=== PATIENT | male | born 1970 | race Caucasian/White ===

== ENCOUNTER 2018-07-25 18:32 | Inpatient (IN) | payer OTHER ==
[2018-07-25 18:42] VITALS: BMI 29.0
--- NOTE | 2018-07-25 22:54 | HP ---
CIWA Score Nausea/Vomitin (vomiting x 2) Muscle Tremors: 4-Moderate,w/Arms Extend Anxiety: 3 Agitation: 3 Paroxysmal Sweats: 2 Orientation: 1-Uncertain about Date Tacttile Disturbances: 0-None Auditory Disturbances: 0-None Visual Disturbances: 0-None Headache: 3-Moderate CIWA-Ar Total Score: 19 - Admission Criteria OASAS Guidelines: Admission for Medically Managed Detox: Requires at least one of the followin. CIWA greater than 12 2. Seizures within the past 24 hours 3. Delirium tremens within the past 24 hours 4. Hallucinations within the past 24 hours 5. Acute intervention needed for co occurring medical disorder 6. Acute intervention needed for co occurring psychiatric disorder 7. Severe withdrawal that cannot be handled at a lower level of care (continued vomiting, continued diarrhea, abnormal vital signs) requiring intravenous medication and/or fluids 8. Admission ROS [facility] Chief Complaint: Alcohol withdrawal symptoms Allergies/Adverse Reactions: Allergies Allergy/AdvReac Type Severity Reaction Status Date / Time No Known Allergies Allergy Verified 07/25/18 22:56 History of Present Illness: 47o years old male with a long history of alcohol dependence is seeking admission to detox. Patient has been in previous and reports insignificant period of sobriety. He has medical history of Hep. C, hypertension, asthma, anxiety and right leg pain He denies suicide attempt and suicidal ideation at this time. This is patient's first admission to [facility] and he reports blackouts from drinking. He is on Methadone 150mg tablet oral at [facility]. Dose is yet to be confirmed by the nurse Exam Limitations: No Limitations - Ebola screening Have you traveled outside of the country in the last 21 days: No (N) Have you had contact with anyone from an Ebola affected area: No Have you been sick,other than usual withdrawal symptoms: No Do you have a fever: No - Review of Systems Constitutional: Chills, Loss of Appetite, Malaise, Changes in sleep EENT: reports: Sinus Pressure Respiratory: reports: No Symptoms reported Cardiac: reports: No Symptoms Reported GI: reports: Diarrhea (x 2), Nausea, Poor Appetite, Poor Fluid Intake, Vomiting (x 2), Abdominal cramping : reports: No Symptoms Reported Musculoskeletal: reports: Back Pain, Other (right leg pain) Integumentary: reports: Dryness, Flushing Neuro: reports: Headache, Tremors Endocrine: reports: No Symptoms Reported Hematology: reports: No Symptoms Reported Psychiatric: reports: Anxious, Depressed Other Systems: Reviewed and Negative Patient History - Patient Medical History Hx Anemia: No Hx Asthma: Yes (Ventolin HFA) Hx Chronic Obstructive Pulmonary Disease (COPD): No Hx Cancer: No Hx Cardiac Disorders: No Hx Congestive Heart Failure: No Hx Hypertension: Yes (Clonidine) Hx Hypercholesterolemia: No Hx Pacemaker: No HX Cerebrovascular Accident: No Hx Seizures: No Hx Dementia: No Hx Diabetes: No Hx Liver Disease: Yes (Hep C.) Hx Genitourinary Disorders: No Hx Sexually Transmitted Disorders: No Hx Renal Disease (ESRD): No Hx Thyroid Disease: No Hx Human Immunodeficiency Virus (HIV): No (Negative 2018) Hx Hepatitis C: Yes (Not treated) Hx Depression: No Hx Suicide Attempt: No (Denies suicidal ideation at this time) Hx Bipolar Disorder: No Hx Schizophrenia: No - Patient Surgical History Past Surgical History: No - PPD History Previous Implant?: Yes Documented Results: Negative w/o proof Implanted On Prior R Admission?: No PPD to be Administered?: Yes - Reproductive History Patient is a Female of Child Bearing Age (11 -55 yrs old): No (Male) - Smoking Cessation Smoking history: Current every day smoker Have you smoked in the past 12 months: Yes Aproximately how many cigarettes per day: 10 Hx Chewing Tobacco Use: No Initiated information on smoking cessation: Yes 'Breaking Loose' booklet given: 07/25/18 - Substances Abused Alcohol Route: Oral Frequency: Daily Amount used: BEER -10 x 16oz. cans, RUM -4 x 8 oz. Age of first use: 16 Date of Last Use: 07/25/18 Family Disease History - Family Disease History Family History: Denies Admission Physical Exam S - Vital Signs Vital Signs: Vital Signs - 24 hr 07/25/18 18:39 Temperature 98.7 F Pulse Rate 81 Respiratory 18 Rate Blood Pressure 128/68 - Physical General Appearance: Yes: Moderate Distress, Tremorous, Sweating, Anxious HEENTM: Yes: EOMI, Normal ENT Inspection, Normal Voice, COURTNEY Respiratory: Yes: Normal Breath Sounds, No Respiratory Distress Neck: Yes: Supple Breast: Yes: Breast Exam Deferred Cardiology: Yes: Regular Rhythm, Regular Rate Abdominal: Yes: Normal Bowel Sounds, Soft Genitourinary: Yes: Within Normal Limits Back: Yes: Normal Inspection Musculoskeletal: Yes: Within Normal Limits Extremities: Yes: Tremors Integumentary: Yes: Warm Lymphatic: Yes: Within Normal Limits - Diagnostic (1) Alcohol dependence with uncomplicated withdrawal Current Visit: Yes Status: Chronic (2) Hep C w/o coma, chronic Current Visit: Yes Status: Chronic (3) Hypertension Current Visit: Yes Status: Chronic Qualifiers: Hypertension type: essential hypertension Qualified Code(s): I10 - Essential (primary) hypertension (4) Asthma Current Visit: Yes Status: Chronic Qualifiers: Asthma severity: mild Asthma persistence: intermittent (5) Left leg pain Current Visit: Yes Status: Chronic (6) Anxiety Current Visit: Yes Status: Chronic (7) Nicotine dependence Current Visit: Yes Status: Chronic Qualifiers: Nicotine product type: cigarettes Substance use status: uncomplicated Qualified Code(s): F17.210 - Nicotine dependence, cigarettes, uncomplicated Cleared for Admission S - Detox or Rehab [facility] Level of Care: Medically Managed Detox Regimen/Protocol: Librium S Breath Alcohol Content Breath Alcohol Content: 0.030 Urine Drug Screen - Results Drug Screen Negative: No Urine Drug Screen Results: ARIC-Cocaine, MTD-Methadone Inpatient Rehab Admission - Rehab Decision to Admit Inpatient rehab admission?: No
[2018-07-25] MEDS ORDERED: MAGNESIUM HYDROX 2400MG/30ML ORAL SUSPENSION 30 ML CUP PO PRN (23:18)
[2018-07-25] MEDS ORDERED: MENTHOL/PHENOL 1 EACH UD MM PRN (23:18)
[2018-07-25] MEDS ORDERED: MAG HYDROX/AL HYDROX/SIMETH 30 ML UNIT-DOSE CUP PO PRN (23:18)
[2018-07-25] MEDS ORDERED: chlordiazePOXIDE HCL 25 MG CAPSULE PO PRN (23:18)
[2018-07-25] MEDS ORDERED: BISMUTH SUBSALICYLATE 524 MG/30 ML UD PO PRN (23:18)
[2018-07-25] MEDS ORDERED: MAGNESIUM CITRATE 300 ML BOTTLE PO PRN (23:18)
[2018-07-25] MEDS ORDERED: MELATONIN 5 MG TABLETS PO PRN (23:18)
[2018-07-25] MEDS ORDERED: NICOTINE POLACRILEX 2 MG GUM BUC PRN (23:18)
[2018-07-25] MEDS ORDERED: ACETAMINOPHEN 325 MG TABLET (FP) PO PRN ×2 (23:18)
[2018-07-26] MEDS: chlordiazePOXIDE HCL 25 MG CAPSULE PO SCH ×5 (01:14→22:26)
[2018-07-26] MEDS: IBUPROFEN 400 MG TABLET (FP) PO PRN (01:17)
[2018-07-26] MEDS ORDERED: METHADONE HCL 10 MG TABLET PO ONE (10:04)
[2018-07-26] MEDS ORDERED: METHADONE 120 MG, METHADONE 30 MG PO ONE (10:30)
[2018-07-26] MEDS ORDERED: METHADONE HCL 10 MG TABLET ONE (10:34)
[2018-07-26] MEDS ORDERED: METHADONE HCL 40 MG DISPERSABLE TABLET ONE (10:34)
[2018-07-26] MEDS: NICOTINE 14 MG/24 HOURS TOPICAL PATCH TD SCH (10:37)
[2018-07-26] MEDS: PRENATAL VITAMINS W/ FOLIC ACID TABLET (FP) PO SCH (10:37)
--- NOTE | 2018-07-26 11:41 | PN ---
S CIWA - CIWA Score Nausea/Vomitin Muscle Tremors: 2 Anxiety: 2 Agitation: 2 Paroxysmal Sweats: 2 Orientation: 0-Oriented Tacttile Disturbances: 1-Very Mild Itch/Numbness Auditory Disturbances: 1-Very Mild Visual Disturbances: 0-None Headache: 2-Mild CIWA-Ar Total Score: 14 [facility] Progress Note (SOAP) Subjective: alert,irritable,anxious,interrupted sleep,pain in the body and back Objective: 07/26/18 11:39 Vital Signs Temperature 98.2 F 07/26/18 09:21 Pulse Rate 67 07/26/18 09:21 Respiratory Rate 18 07/26/18 09:21 Blood Pressure 164/83 07/26/18 09:21 O2 Sat by Pulse Oximetry (%) ekg nsr,lvh no chest pain,no sob,no dizziness labs pending Assessment: 07/26/18 11:40 withdrawal symptom Plan: continue detox
[2018-07-26 12:17] LABS: HEMATOCRIT 39.4 % (35.4-49); HEMOGLOBIN 13.4 GM/dL (11.7-16.9); MCH 31.5 pg (25.7-33.7); MCHC 33.9 g/dl (32.0-35.9); MEAN CELL VOLUME 92.9 fl (80-96); MEAN PLT VOLUME 9.2 fl (7.5-11.1); PLATELET COUNT 210 K/MM3 (134-434); RBC 4.24 M/mm3 (4.00-5.60); RDW 13.4 % (11.9-15.9)
[2018-07-26 12:34] LABS: ALBUMIN 3.3 g/dl (3.4-5.0); ALK PHOS 125 U/L (45-117); ANION GAP 8 MMOL/L (8-16); BILIRUBIN,TOTAL 0.4 mg/dL (0.2-1); BLOOD UREA NITROGEN 20 mg/dL (7-18); CALCIUM 8.5 mg/dL (8.5-10.1); CHLORIDE 105 mmol/L (98-107); CO2 25 mmol/L (21-32); CREATININE 0.9 mg/dL (0.55-1.3); GLUCOSE,RANDOM 97 mg/dL (74-106); SGOT/AST 86 U/L (15-37); SGPT/ALT 114 U/L (13-61); SODIUM 138 mmol/L (136-145); TOT PROT 6.8 g/dl (6.4-8.2)
[2018-07-26] MEDS: METHOCARBAMOL 500 MG TABLET PO PRN (13:31)
[2018-07-26] MEDS: hydrOXYzine PAMOATE 25 MG CAPSULE (FP) PO PRN (13:31)
--- NOTE | 2018-07-26 21:46 | EKG ---
Test Reason : Blood Pressure : / mmHG Vent. Rate : 071 BPM Atrial Rate : 071 BPM P-R Int : 170 ms QRS Dur : 098 ms QT Int : 424 ms P-R-T Axes : 063 082 031 degrees QTc Int : 460 ms NORMAL SINUS RHYTHM MODERATE VOLTAGE CRITERIA FOR LVH, MAY BE NORMAL VARIANT BORDERLINE ECG NO PREVIOUS ECGS AVAILABLE Confirmed by MD CÉSAR, BENJY ([id number]) on 07/26/2018 9:46:18 PM Referred By: TIMMY BROOKS Confirmed By:BENJY LINDSEY MD
[2018-07-26] MEDS: BACITRACIN 0.9 GM PACKET TP SCH (22:26)
[2018-07-26] MEDS: THIAMINE HCL 100 MG TABLET (FP) PO SCH (22:26)
[2018-07-27] MEDS ORDERED: METHADONE HCL 40 MG DISPERSABLE TABLET ONE (05:12)
[2018-07-27] MEDS ORDERED: METHADONE HCL 10 MG TABLET ONE (05:12)
[2018-07-27] MEDS ORDERED: METHADONE HCL 10 MG TABLET PO SCH (06:00)
[2018-07-27] MEDS: METHADONE 120 MG, METHADONE 30 MG PO SCH (06:35)
[2018-07-27] MEDS: chlordiazePOXIDE HCL 25 MG CAPSULE PO SCH ×3 (06:35→17:22)
[2018-07-27] MEDS: IBUPROFEN 400 MG TABLET (FP) PO PRN ×2 (08:29→17:25)
[2018-07-27] MEDS ORDERED: BACLOFEN 10 MG TABLET (FP) PO ONE (09:53)
[2018-07-27] MEDS ORDERED: ONDANSETRON *ODT* 4 MG TABLET SL PRN (09:54)
[2018-07-27] MEDS: LIDOCAINE 5% TOPICAL PATCH TP SCH (10:10)
[2018-07-27] MEDS: BACITRACIN 0.9 GM PACKET TP SCH ×2 (10:10→22:19)
--- NOTE | 2018-07-27 10:10 | PN ---
S CIWA - CIWA Score Nausea/Vomitin-Mild Nausea/No Vomiting Muscle Tremors: 4-Moderate,w/Arms Extend Anxiety: 3 Agitation: 3 Paroxysmal Sweats: 3 Orientation: 0-Oriented Tacttile Disturbances: 0-None Auditory Disturbances: 0-None Visual Disturbances: 0-None Headache: 0-None Present CIWA-Ar Total Score: 14 [facility]HS Progress Note (SOAP) Subjective: sweats low back pain radiating down to right leg shakes interrupted sleep nausea muscle aches/spasms Objective: 07/27/18 10:09 Vital Signs Temperature 98.1 F 07/27/18 09:48 Pulse Rate 80 07/27/18 09:48 Respiratory Rate 18 07/27/18 09:48 Blood Pressure 152/85 07/27/18 09:48 O2 Sat by Pulse Oximetry (%) Laboratory Tests 07/26/18 07/26/18 07/26/18 07:30 07:30 07:30 WBC 4.0 RBC 4.24 Hgb 13.4 Hct 39.4 MCV 92.9 MCH 31.5 MCHC 33.9 RDW 13.4 Plt Count 210 MPV 9.2 Sodium 138 Potassium 4.0 Chloride 105 Carbon Dioxide 25 Anion Gap 8 BUN 20 H Creatinine 0.9 Creat Clearance w eGFR 89.69 Random Glucose 97 Calcium 8.5 Total Bilirubin 0.4 AST 86 H ALT 114 H Alkaline Phosphatase 125 H Total Protein 6.8 Albumin 3.3 L RPR Titer Nonreactive labs noted elevated ast/alt; d/c tylenol aaox3 ambulating no acute distress Assessment: 07/27/18 10:09 withdrawal sx Plan: continue detox increase fluids x-ray ordered motrin 800mg tid prn lidoderm patch baclofen 10mg tid analgesic balm
[2018-07-27] MEDS: NICOTINE 14 MG/24 HOURS TOPICAL PATCH TD SCH (10:11)
[2018-07-27] MEDS: PRENATAL VITAMINS W/ FOLIC ACID TABLET (FP) PO SCH (10:11)
[2018-07-27] MEDS: BACLOFEN 10 MG TABLET (FP) PO SCH ×2 (13:23→22:18)
[2018-07-27] MEDS: THIAMINE HCL 100 MG TABLET (FP) PO SCH (22:18)
[2018-07-27] MEDS: LIDOCAINE PATCH REMOVAL MC SCH (22:19)
[2018-07-27] MEDS: chlordiazePOXIDE HCL 10 MG CAPSULE PO SCH (22:19)
[2018-07-27] MEDS: METHYL SALICYLATE/MENTHOL OINT 30 GM TUBE TP SCH (22:19)
[2018-07-27] MEDS ORDERED: chlordiazePOXIDE HCL 10 MG CAPSULE PO PRN (23:00)
[2018-07-28] MEDS ORDERED: METHADONE HCL 10 MG TABLET ONE (05:09)
[2018-07-28] MEDS ORDERED: METHADONE HCL 40 MG DISPERSABLE TABLET ONE (05:09)
[2018-07-28] MEDS: chlordiazePOXIDE HCL 10 MG CAPSULE PO SCH ×4 (05:54→22:33)
[2018-07-28] MEDS: BACLOFEN 10 MG TABLET (FP) PO SCH ×3 (05:54→22:32)
[2018-07-28] MEDS: METHADONE 120 MG, METHADONE 30 MG PO SCH (05:54)
[2018-07-28] MEDS: IBUPROFEN 400 MG TABLET (FP) PO PRN ×2 (10:33→18:50)
[2018-07-28] MEDS: hydrOXYzine PAMOATE 25 MG CAPSULE (FP) PO PRN ×2 (10:34→22:32)
[2018-07-28] MEDS: METHOCARBAMOL 500 MG TABLET PO PRN (10:34)
[2018-07-28] MEDS: PRENATAL VITAMINS W/ FOLIC ACID TABLET (FP) PO SCH (10:34)
[2018-07-28] MEDS: NICOTINE 14 MG/24 HOURS TOPICAL PATCH TD SCH (10:37)
--- NOTE | 2018-07-28 11:24 | PN ---
S Progress Note (SOAP) Subjective: alert,irritable,anxious,interrupted sleep,pain in the right hip Objective: 07/28/18 11:20 Vital Signs Temperature 97.2 F L 07/28/18 09:27 Pulse Rate 77 07/28/18 09:27 Respiratory Rate 18 07/28/18 09:27 Blood Pressure 148/82 07/28/18 09:27 O2 Sat by Pulse Oximetry (%) 07/28/18 11:21 xray of hips,pelvis noted,arthritis Assessment: 07/28/18 11:22 withdrawal symptom Plan: continue detox,discharge in am,advise follow up with medical provider and orthpedic evaluation after discharge in am
[2018-07-28] MEDS: LIDOCAINE 5% TOPICAL PATCH TP SCH (11:46)
[2018-07-28] MEDS: BACITRACIN 0.9 GM PACKET TP SCH ×2 (11:47→22:32)
[2018-07-28] MEDS: METHYL SALICYLATE/MENTHOL OINT 30 GM TUBE TP SCH ×2 (11:47→23:44)
[2018-07-28] MEDS ORDERED: ALBUTEROL SO4 0.083% IH SOL 2.5 MG/3 ML VIAL.NEB. NEB PRN (18:55)
[2018-07-28] MEDS: THIAMINE HCL 100 MG TABLET (FP) PO SCH (22:33)
[2018-07-28] MEDS: LIDOCAINE PATCH REMOVAL MC SCH (23:44)
[2018-07-29] MEDS ORDERED: METHADONE HCL 40 MG DISPERSABLE TABLET ONE (04:23)
[2018-07-29] MEDS ORDERED: METHADONE HCL 10 MG TABLET ONE (04:24)
[2018-07-29] MEDS: METHADONE 120 MG, METHADONE 30 MG PO SCH (05:29)
[2018-07-29] MEDS: BACLOFEN 10 MG TABLET (FP) PO SCH ×2 (05:30→13:54)
[2018-07-29] MEDS: IBUPROFEN 400 MG TABLET (FP) PO PRN (08:58)
--- NOTE | 2018-07-29 09:02 | DS ---
[facility] Detox Discharge Summary Admission Date: 07/25/18 Discharge Date: 07/29/18 - History Present History: Alcohol Dependence - Physical Exam Results Vital Signs: Vital Signs Temperature 97.9 F 07/29/18 06:00 Pulse Rate 80 07/29/18 06:00 Respiratory Rate 18 07/29/18 06:00 Blood Pressure 128/78 07/29/18 06:00 O2 Sat by Pulse Oximetry (%) - Treatment Hospital Course: Detox Protocol Followed, Detoxed Safely, Responded well, Discharged Condition Good, Rehab Referral Accepted - Medication Discharge Medications: Ambulatory Orders NK [No Known Home Medication] 07/28/18 - Diagnosis (1) Alcohol dependence with uncomplicated withdrawal Current Visit: Yes Status: Chronic (2) Anxiety Current Visit: Yes Status: Chronic (3) Asthma Current Visit: Yes Status: Chronic Qualifiers: Asthma severity: mild Asthma persistence: intermittent (4) Hep C w/o coma, chronic Current Visit: Yes Status: Chronic (5) Hypertension Current Visit: Yes Status: Chronic Qualifiers: Hypertension type: essential hypertension Qualified Code(s): I10 - Essential (primary) hypertension (6) Left leg pain Current Visit: Yes Status: Chronic (7) Nicotine dependence Current Visit: Yes Status: Chronic Qualifiers: Nicotine product type: cigarettes Substance use status: uncomplicated Qualified Code(s): F17.210 - Nicotine dependence, cigarettes, uncomplicated - AMA Did Patient Leave Against Medical Advice: No (pt declined rehab; referred to see his PCP if necessary)
--- NOTE | 2018-07-29 09:05 | PN ---
S Progress Note Note: pt had a leg x-ray done; report reads degenerative changes but if pain persist he is to go see an orthopedic MD. Pt was made aware and copy of result was provided.
[2018-07-29 09:55] VITALS: BP 120/79; PULSE 85; TEMP 97
[2018-07-29] MEDS: PRENATAL VITAMINS W/ FOLIC ACID TABLET (FP) PO SCH (10:13)
[2018-07-29] MEDS: LIDOCAINE 5% TOPICAL PATCH TP SCH (10:13)
[2018-07-29] MEDS: NICOTINE 14 MG/24 HOURS TOPICAL PATCH TD SCH (10:13)
[2018-07-29] MEDS: BACITRACIN 0.9 GM PACKET TP SCH (10:14)
[2018-07-29] MEDS: METHYL SALICYLATE/MENTHOL OINT 30 GM TUBE TP SCH (10:14)
[2018-07-29] MEDS: chlordiazePOXIDE HCL 10 MG CAPSULE PO SCH (12:45)
== END 2018-07-29 14:00 | disposition other institution (70) | DRG 775 ==
LOC: YASAS 18:32 → Y6N 23:42
PROVIDERS: ADMIT Surgery; ATTEND Surgery
PROC: HZ2ZZZZ Detoxification Services for Substance Abuse Treatment (ICD-10-PCS; principal; 2018-07-25)
DX: F10.230 Alcohol dependence with withdrawal, uncomplicated (principal); F17.210 Nicotine dependence, cigarettes, uncomplicated; F41.9 Anxiety disorder, unspecified; I10 Essential (primary) hypertension; B18.2 Chronic viral hepatitis C; J45.20 Mild intermittent asthma, uncomplicated; M79.605 Pain in left leg
CPT/HCPCS: 36415; 73523-TC-FY; 80053; 85027; 86593; 93005; 93010; J0475

== ENCOUNTER 2018-07-29 14:10 | Inpatient (IN) | payer OTHER ==
[2018-07-29] MEDS ORDERED: P-EPHED 60MG/TRIPROLIDI 2.5MG TABLET PO PRN (14:35)
[2018-07-29] MEDS ORDERED: MAGNESIUM CITRATE 300 ML BOTTLE PO PRN (14:35)
[2018-07-29] MEDS ORDERED: MENTHOL/PHENOL 1 EACH UD MM PRN (14:35)
[2018-07-29] MEDS ORDERED: guaiFENesin 200 MG/10 ML 10 ML UNIT-DOSE CUPS PO PRN (14:35)
[2018-07-29] MEDS ORDERED: MAGNESIUM HYDROX 2400MG/30ML ORAL SUSPENSION 30 ML CUP PO PRN (14:35)
[2018-07-29] MEDS ORDERED: ACETAMINOPHEN 325 MG TABLET (FP) PO PRN (14:35)
[2018-07-29] MEDS ORDERED: hydrOXYzine PAMOATE 25 MG CAPSULE (FP) PO PRN (14:35)
[2018-07-29] MEDS ORDERED: LOPERAMIDE HCL 2 MG CAPSULE PO PRN (14:35)
--- NOTE | 2018-07-29 14:35 | HP ---
ANDREEA MAGDALENO Rehab Assess/Revision - Admission History Admitted to Rehab from: [facility] Date of Admission to Rehab: 07/29/18 - Findings Detox History & Physical reviewed: Yes Concur with findings: Yes Comments/Additional Findings: for rehab as protocol Inpatient Rehab Admission - Rehab Decision to Admit Inpatient rehab admission?: Yes - Initial Determination Are CD services needed?: Yes Free of communicable disease: Yes Not in need of hospitalization: Yes - Rehab Admission Criteria Previous failed treatment: Yes Poor recovery environment: Yes Comorbidities: Yes Lacks judgement: No Patient is meeting Inpatient Rehab admission criteria:: Yes
[2018-07-29] MEDS ORDERED: ALBUTEROL SO4 8 GM HFA INHALER IH PRN (14:39)
[2018-07-29] MEDS: IBUPROFEN 400 MG TABLET (FP) PO PRN (14:54)
[2018-07-29] MEDS: THIAMINE HCL 100 MG TABLET (FP) PO SCH (21:04)
[2018-07-29] MEDS: CYCLOBENZAPRINE HCL 10 MG TABLET (FP) PO SCH (21:04)
[2018-07-29] MEDS: MELATONIN 5 MG TABLETS PO PRN (21:04)
[2018-07-29] MEDS: METHYL SALICYLATE/MENTHOL OINT 30 GM TUBE TP SCH (21:05)
[2018-07-29] MEDS: BUDESONIDE/FORMETEROL FUMARATE 160/4.5 mcg INHALER IH SCH (21:06)
[2018-07-29] MEDS: LIDOCAINE PATCH REMOVAL MC SCH (21:10)
[2018-07-30] MEDS ORDERED: METHADONE HCL 10 MG TABLET PO SCH (06:00)
[2018-07-30] MEDS ORDERED: METHADONE HCL 40 MG DISPERSABLE TABLET ONE (06:25)
[2018-07-30] MEDS: CYCLOBENZAPRINE HCL 10 MG TABLET (FP) PO SCH ×3 (06:25→21:18)
[2018-07-30] MEDS: METHADONE 120 MG, METHADONE 30 MG PO SCH (06:25)
[2018-07-30] MEDS ORDERED: METHADONE HCL 10 MG TABLET ONE (06:25)
[2018-07-30] MEDS: LIDOCAINE 5% TOPICAL PATCH TP SCH (09:04)
[2018-07-30] MEDS: PRENATAL VITAMINS W/ FOLIC ACID TABLET (FP) PO SCH (09:04)
[2018-07-30] MEDS: METHYL SALICYLATE/MENTHOL OINT 30 GM TUBE TP SCH ×2 (09:05→21:17)
[2018-07-30] MEDS: BUDESONIDE/FORMETEROL FUMARATE 160/4.5 mcg INHALER IH SCH ×2 (09:05→21:18)
[2018-07-30] MEDS: IBUPROFEN 400 MG TABLET (FP) PO PRN (09:05)
[2018-07-30] MEDS: MAG HYDROX/AL HYDROX/SIMETH 30 ML UNIT-DOSE CUP PO PRN (13:35)
[2018-07-30] MEDS: LIDOCAINE PATCH REMOVAL MC SCH (21:17)
[2018-07-30] MEDS: THIAMINE HCL 100 MG TABLET (FP) PO SCH (21:18)
[2018-07-31] MEDS ORDERED: METHADONE HCL 40 MG DISPERSABLE TABLET ONE (03:30)
[2018-07-31] MEDS ORDERED: METHADONE HCL 10 MG TABLET ONE (03:30)
[2018-07-31] MEDS: CYCLOBENZAPRINE HCL 10 MG TABLET (FP) PO SCH ×3 (06:09→21:07)
[2018-07-31] MEDS: METHADONE 120 MG, METHADONE 30 MG PO SCH (06:10)
[2018-07-31] MEDS: PRENATAL VITAMINS W/ FOLIC ACID TABLET (FP) PO SCH (09:15)
[2018-07-31] MEDS: IBUPROFEN 400 MG TABLET (FP) PO PRN ×2 (09:15→21:09)
[2018-07-31] MEDS: LIDOCAINE 5% TOPICAL PATCH TP SCH (09:15)
[2018-07-31] MEDS: BUDESONIDE/FORMETEROL FUMARATE 160/4.5 mcg INHALER IH SCH ×2 (09:16→21:07)
[2018-07-31] MEDS: METHYL SALICYLATE/MENTHOL OINT 30 GM TUBE TP SCH ×2 (09:16→21:07)
[2018-07-31] MEDS: THIAMINE HCL 100 MG TABLET (FP) PO SCH (21:07)
[2018-07-31] MEDS: LIDOCAINE PATCH REMOVAL MC SCH (21:07)
[2018-07-31] MEDS: MELATONIN 5 MG TABLETS PO PRN (21:08)
[2018-08-01] MEDS ORDERED: METHADONE HCL 10 MG TABLET ONE (04:07)
[2018-08-01] MEDS ORDERED: METHADONE HCL 40 MG DISPERSABLE TABLET ONE (04:07)
[2018-08-01] MEDS: METHADONE 120 MG, METHADONE 30 MG PO SCH (06:15)
[2018-08-01] MEDS: CYCLOBENZAPRINE HCL 10 MG TABLET (FP) PO SCH ×3 (06:15→21:01)
[2018-08-01] MEDS: IBUPROFEN 400 MG TABLET (FP) PO PRN ×2 (08:44→21:03)
[2018-08-01] MEDS: PRENATAL VITAMINS W/ FOLIC ACID TABLET (FP) PO SCH (09:49)
[2018-08-01] MEDS: BUDESONIDE/FORMETEROL FUMARATE 160/4.5 mcg INHALER IH SCH ×2 (09:50→21:01)
[2018-08-01] MEDS: LIDOCAINE 5% TOPICAL PATCH TP SCH (09:50)
[2018-08-01] MEDS: METHYL SALICYLATE/MENTHOL OINT 30 GM TUBE TP SCH ×2 (09:51→21:04)
[2018-08-01] MEDS: NICOTINE 21 MG/24 HOURS TOPICAL PATCH TD SCH (14:05)
--- NOTE | 2018-08-01 16:10 | PN ---
[facility] Progress Note Note: C/O BACK PAIN NOT EFFECTIVE WITH IBUPROFEN. WANTS LIDOCAINE PATCH. Vital Signs (72 hours) 07/30/18 07/30/18 07/30/18 00:30 03:30 06:40 Temperature 97.8 F Pulse Rate 79 Respiratory 18 18 18 Rate Blood Pressure 134/83 07/31/18 07/31/18 07/31/18 00:30 03:30 06:30 Temperature 98.1 F Pulse Rate 77 Respiratory 18 18 16 Rate Blood Pressure 145/85 08/01/18 08/01/18 08/01/18 00:30 03:30 06:47 Temperature 98.1 F Pulse Rate 72 Respiratory 18 18 18 Rate Blood Pressure 146/83 08/01/18 10:00 Temperature Pulse Rate 81 Respiratory 18 Rate Blood Pressure 128/84 A:CHRONIC BACK PAIN PLAN:LIDOCAINE PATCH DIRECTED
[2018-08-01] MEDS: THIAMINE HCL 100 MG TABLET (FP) PO SCH (21:01)
[2018-08-01] MEDS: MELATONIN 5 MG TABLETS PO PRN (21:02)
[2018-08-01] MEDS: LIDOCAINE PATCH REMOVAL MC SCH (21:05)
[2018-08-02] MEDS ORDERED: METHADONE HCL 40 MG DISPERSABLE TABLET ONE (03:10)
[2018-08-02] MEDS ORDERED: METHADONE HCL 10 MG TABLET ONE (03:10)
[2018-08-02] MEDS: CYCLOBENZAPRINE HCL 10 MG TABLET (FP) PO SCH ×3 (06:09→21:17)
[2018-08-02] MEDS: METHADONE 120 MG, METHADONE 30 MG PO SCH (06:10)
[2018-08-02] MEDS: IBUPROFEN 400 MG TABLET (FP) PO PRN ×2 (08:27→21:18)
[2018-08-02] MEDS: LIDOCAINE 5% TOPICAL PATCH TP SCH (10:13)
[2018-08-02] MEDS: BUDESONIDE/FORMETEROL FUMARATE 160/4.5 mcg INHALER IH SCH ×2 (10:13→21:16)
[2018-08-02] MEDS: PRENATAL VITAMINS W/ FOLIC ACID TABLET (FP) PO SCH (10:13)
[2018-08-02] MEDS: METHYL SALICYLATE/MENTHOL OINT 30 GM TUBE TP SCH ×2 (10:14→21:15)
[2018-08-02] MEDS: NICOTINE 21 MG/24 HOURS TOPICAL PATCH TD SCH (10:14)
[2018-08-02] MEDS: MELATONIN 5 MG TABLETS PO PRN (21:16)
[2018-08-02] MEDS: THIAMINE HCL 100 MG TABLET (FP) PO SCH (21:17)
[2018-08-02] MEDS: LIDOCAINE PATCH REMOVAL MC SCH (21:17)
[2018-08-03] MEDS ORDERED: METHADONE HCL 40 MG DISPERSABLE TABLET ONE (04:16)
[2018-08-03] MEDS ORDERED: METHADONE HCL 10 MG TABLET ONE (04:16)
[2018-08-03] MEDS: CYCLOBENZAPRINE HCL 10 MG TABLET (FP) PO SCH ×3 (06:25→21:02)
[2018-08-03] MEDS: METHADONE 120 MG, METHADONE 30 MG PO SCH (06:25)
[2018-08-03] MEDS: IBUPROFEN 400 MG TABLET (FP) PO PRN (08:42)
[2018-08-03] MEDS: BUDESONIDE/FORMETEROL FUMARATE 160/4.5 mcg INHALER IH SCH ×2 (09:57→21:02)
[2018-08-03] MEDS: PRENATAL VITAMINS W/ FOLIC ACID TABLET (FP) PO SCH (09:57)
[2018-08-03] MEDS: METHYL SALICYLATE/MENTHOL OINT 30 GM TUBE TP SCH ×2 (09:58→21:04)
[2018-08-03] MEDS: NICOTINE 21 MG/24 HOURS TOPICAL PATCH TD SCH (09:58)
[2018-08-03] MEDS: LIDOCAINE 5% TOPICAL PATCH TP SCH (09:58)
[2018-08-03] MEDS: MAG HYDROX/AL HYDROX/SIMETH 30 ML UNIT-DOSE CUP PO PRN (12:08)
[2018-08-03] MEDS: THIAMINE HCL 100 MG TABLET (FP) PO SCH (21:02)
[2018-08-03] MEDS: LIDOCAINE PATCH REMOVAL MC SCH (21:03)
[2018-08-03] MEDS: MELATONIN 5 MG TABLETS PO PRN (21:03)
[2018-08-04] MEDS ORDERED: METHADONE HCL 10 MG TABLET ONE (03:28)
[2018-08-04] MEDS ORDERED: METHADONE HCL 40 MG DISPERSABLE TABLET ONE (03:29)
[2018-08-04] MEDS: METHADONE 120 MG, METHADONE 30 MG PO SCH (06:13)
[2018-08-04] MEDS: CYCLOBENZAPRINE HCL 10 MG TABLET (FP) PO SCH ×3 (06:14→21:06)
[2018-08-04] MEDS: PRENATAL VITAMINS W/ FOLIC ACID TABLET (FP) PO SCH (09:42)
[2018-08-04] MEDS: METHYL SALICYLATE/MENTHOL OINT 30 GM TUBE TP SCH ×2 (09:42→21:07)
[2018-08-04] MEDS: BUDESONIDE/FORMETEROL FUMARATE 160/4.5 mcg INHALER IH SCH ×2 (09:43→21:07)
[2018-08-04] MEDS: NICOTINE 21 MG/24 HOURS TOPICAL PATCH TD SCH (10:19)
[2018-08-04] MEDS: LIDOCAINE 5% TOPICAL PATCH TP SCH (10:20)
[2018-08-04] MEDS: IBUPROFEN 400 MG TABLET (FP) PO PRN (12:53)
[2018-08-04] MEDS: MAG HYDROX/ALH/SMC/DPHA/LIDO 240 ML MOUTHWASH MM SCH ×2 (15:07→17:55)
[2018-08-04] MEDS: THIAMINE HCL 100 MG TABLET (FP) PO SCH (21:06)
[2018-08-04] MEDS: MELATONIN 5 MG TABLETS PO PRN (21:06)
[2018-08-04] MEDS: LIDOCAINE PATCH REMOVAL MC SCH (21:07)
[2018-08-05] MEDS: MAG HYDROX/ALH/SMC/DPHA/LIDO 240 ML MOUTHWASH MM SCH ×5 (00:04→23:54)
[2018-08-05] MEDS ORDERED: METHADONE HCL 10 MG TABLET ONE (05:51)
[2018-08-05] MEDS ORDERED: METHADONE HCL 40 MG DISPERSABLE TABLET ONE (05:51)
[2018-08-05] MEDS: CYCLOBENZAPRINE HCL 10 MG TABLET (FP) PO SCH ×3 (06:15→21:14)
[2018-08-05] MEDS: METHADONE 120 MG, METHADONE 30 MG PO SCH (06:15)
[2018-08-05] MEDS: IBUPROFEN 400 MG TABLET (FP) PO PRN ×2 (08:49→14:24)
[2018-08-05] MEDS: PRENATAL VITAMINS W/ FOLIC ACID TABLET (FP) PO SCH (09:41)
[2018-08-05] MEDS: LIDOCAINE 5% TOPICAL PATCH TP SCH (09:41)
[2018-08-05] MEDS: METHYL SALICYLATE/MENTHOL OINT 30 GM TUBE TP SCH ×2 (09:41→21:15)
[2018-08-05] MEDS: BUDESONIDE/FORMETEROL FUMARATE 160/4.5 mcg INHALER IH SCH ×2 (09:42→21:18)
[2018-08-05] MEDS: NICOTINE 21 MG/24 HOURS TOPICAL PATCH TD SCH (09:42)
[2018-08-05] MEDS: THIAMINE HCL 100 MG TABLET (FP) PO SCH (21:13)
[2018-08-05] MEDS: MELATONIN 5 MG TABLETS PO PRN (21:14)
[2018-08-05] MEDS: LIDOCAINE PATCH REMOVAL MC SCH (21:15)
[2018-08-06] MEDS ORDERED: METHADONE HCL 10 MG TABLET ONE (04:28)
[2018-08-06] MEDS ORDERED: METHADONE HCL 40 MG DISPERSABLE TABLET ONE (04:29)
[2018-08-06] MEDS: CYCLOBENZAPRINE HCL 10 MG TABLET (FP) PO SCH ×3 (06:21→21:06)
[2018-08-06] MEDS: METHADONE 120 MG, METHADONE 30 MG PO SCH (06:22)
[2018-08-06] MEDS: MAG HYDROX/ALH/SMC/DPHA/LIDO 240 ML MOUTHWASH MM SCH ×3 (06:23→17:16)
[2018-08-06] MEDS: IBUPROFEN 400 MG TABLET (FP) PO PRN ×2 (09:38→21:08)
[2018-08-06] MEDS: BUDESONIDE/FORMETEROL FUMARATE 160/4.5 mcg INHALER IH SCH ×2 (09:38→21:07)
[2018-08-06] MEDS: PRENATAL VITAMINS W/ FOLIC ACID TABLET (FP) PO SCH (09:38)
[2018-08-06] MEDS: LIDOCAINE 5% TOPICAL PATCH TP SCH (09:39)
[2018-08-06] MEDS: NICOTINE 21 MG/24 HOURS TOPICAL PATCH TD SCH (09:39)
[2018-08-06] MEDS: METHYL SALICYLATE/MENTHOL OINT 30 GM TUBE TP SCH ×2 (09:40→21:07)
[2018-08-06] MEDS: MELATONIN 5 MG TABLETS PO PRN (21:06)
[2018-08-06] MEDS: THIAMINE HCL 100 MG TABLET (FP) PO SCH (21:06)
[2018-08-06] MEDS: LIDOCAINE PATCH REMOVAL MC SCH (21:07)
[2018-08-07] MEDS: MAG HYDROX/ALH/SMC/DPHA/LIDO 240 ML MOUTHWASH MM SCH ×5 (00:01→23:35)
[2018-08-07] MEDS ORDERED: METHADONE HCL 40 MG DISPERSABLE TABLET ONE (04:13)
[2018-08-07] MEDS ORDERED: METHADONE HCL 10 MG TABLET ONE (04:13)
[2018-08-07] MEDS: METHADONE 120 MG, METHADONE 30 MG PO SCH (06:17)
[2018-08-07] MEDS: CYCLOBENZAPRINE HCL 10 MG TABLET (FP) PO SCH ×3 (06:17→21:09)
[2018-08-07] MEDS: IBUPROFEN 400 MG TABLET (FP) PO PRN ×3 (07:06→21:10)
[2018-08-07] MEDS: BUDESONIDE/FORMETEROL FUMARATE 160/4.5 mcg INHALER IH SCH ×2 (09:39→21:09)
[2018-08-07] MEDS: LIDOCAINE 5% TOPICAL PATCH TP SCH (09:40)
[2018-08-07] MEDS: PRENATAL VITAMINS W/ FOLIC ACID TABLET (FP) PO SCH (09:40)
[2018-08-07] MEDS: NICOTINE 21 MG/24 HOURS TOPICAL PATCH TD SCH (09:41)
[2018-08-07] MEDS: METHYL SALICYLATE/MENTHOL OINT 30 GM TUBE TP SCH ×2 (09:41→21:12)
[2018-08-07] MEDS: MELATONIN 5 MG TABLETS PO PRN (21:09)
[2018-08-07] MEDS: THIAMINE HCL 100 MG TABLET (FP) PO SCH (21:09)
[2018-08-07] MEDS: LIDOCAINE PATCH REMOVAL MC SCH (21:12)
[2018-08-08] MEDS ORDERED: METHADONE HCL 40 MG DISPERSABLE TABLET ONE (03:51)
[2018-08-08] MEDS ORDERED: METHADONE HCL 10 MG TABLET ONE (03:51)
[2018-08-08] MEDS: CYCLOBENZAPRINE HCL 10 MG TABLET (FP) PO SCH ×3 (06:12→21:06)
[2018-08-08] MEDS: METHADONE 120 MG, METHADONE 30 MG PO SCH (06:13)
[2018-08-08] MEDS: MAG HYDROX/ALH/SMC/DPHA/LIDO 240 ML MOUTHWASH MM SCH ×4 (06:45→23:18)
[2018-08-08] MEDS: LIDOCAINE 5% TOPICAL PATCH TP SCH (10:06)
[2018-08-08] MEDS: NICOTINE 21 MG/24 HOURS TOPICAL PATCH TD SCH (10:06)
[2018-08-08] MEDS: PRENATAL VITAMINS W/ FOLIC ACID TABLET (FP) PO SCH (10:07)
[2018-08-08] MEDS: BUDESONIDE/FORMETEROL FUMARATE 160/4.5 mcg INHALER IH SCH ×2 (10:07→21:06)
[2018-08-08] MEDS: METHYL SALICYLATE/MENTHOL OINT 30 GM TUBE TP SCH ×2 (10:08→21:08)
[2018-08-08] MEDS: IBUPROFEN 400 MG TABLET (FP) PO PRN ×2 (12:13→21:07)
[2018-08-08] MEDS: THIAMINE HCL 100 MG TABLET (FP) PO SCH (21:06)
[2018-08-08] MEDS: MELATONIN 5 MG TABLETS PO PRN (21:06)
[2018-08-08] MEDS: LIDOCAINE PATCH REMOVAL MC SCH (21:08)
[2018-08-09] MEDS ORDERED: METHADONE HCL 10 MG TABLET ONE (03:52)
[2018-08-09] MEDS ORDERED: METHADONE HCL 40 MG DISPERSABLE TABLET ONE (03:53)
[2018-08-09] MEDS: METHADONE 120 MG, METHADONE 30 MG PO SCH (05:56)
[2018-08-09] MEDS: CYCLOBENZAPRINE HCL 10 MG TABLET (FP) PO SCH ×3 (05:56→23:32)
[2018-08-09] MEDS: MAG HYDROX/ALH/SMC/DPHA/LIDO 240 ML MOUTHWASH MM SCH ×3 (05:59→17:40)
[2018-08-09] MEDS: NICOTINE 21 MG/24 HOURS TOPICAL PATCH TD SCH (09:36)
[2018-08-09] MEDS: PRENATAL VITAMINS W/ FOLIC ACID TABLET (FP) PO SCH (09:36)
[2018-08-09] MEDS: LIDOCAINE 5% TOPICAL PATCH TP SCH (09:36)
[2018-08-09] MEDS: BUDESONIDE/FORMETEROL FUMARATE 160/4.5 mcg INHALER IH SCH ×2 (09:36→23:33)
[2018-08-09] MEDS: METHYL SALICYLATE/MENTHOL OINT 30 GM TUBE TP SCH ×2 (09:37→23:32)
[2018-08-09] MEDS: IBUPROFEN 400 MG TABLET (FP) PO PRN ×2 (09:38→17:42)
[2018-08-09] MEDS: MAG HYDROX/AL HYDROX/SIMETH 30 ML UNIT-DOSE CUP PO PRN (12:46)
[2018-08-09] MEDS ORDERED: LISINOPRIL 10 MG TABLET (FP) PO ONE (14:00)
[2018-08-09] MEDS ORDERED: HYDROCHLOROTHIAZIDE 25 MG TABLET (FP) PO ONE (14:00)
[2018-08-09] MEDS ORDERED: LISINOPRIL 20 MG TABLET (FP) PO SCH (22:00)
[2018-08-09] MEDS: THIAMINE HCL 100 MG TABLET (FP) PO SCH (23:33)
[2018-08-09] MEDS: LIDOCAINE PATCH REMOVAL MC SCH (23:33)
--- NOTE | 2018-08-10 00:05 | PN ---
[facility] Progress Note Note: PT REPORTED HE TAKES ANTI HYPERTENSIVE MEDICATIONS BUT UNABLE TO REMEMBER NAMES. THIS BIOTECHNOLOGIST CHECKED INTO PATIENTS OUTSIDE PHARMACY ONLINE AND PULLED OUT PATIENT'S CURRENT MEDS. PT IS ON HYDROCHLOROTHIAZIDE 25 MG PO DAILY, LISINOPRIL 20 MG PO DAILY AND ALSO FLOMAX 0.4 MG PO DAILY. PT ALSO TAKES ANTIRETROVIRALS AND APPEARS TO BE OUT OF COMPLIANCE WITH THEM. PT WILL FOOLW UP WITH HIS PCP AFTER REHAB TO RESTART. RESTARTED FLOMAX AND THE ANTIHYPERTENSIVE MEDS.
[2018-08-10] MEDS: MAG HYDROX/ALH/SMC/DPHA/LIDO 240 ML MOUTHWASH MM SCH ×2 (00:25→06:49)
[2018-08-10] MEDS ORDERED: METHADONE HCL 10 MG TABLET ONE (04:11)
[2018-08-10] MEDS ORDERED: METHADONE HCL 40 MG DISPERSABLE TABLET ONE (04:12)
[2018-08-10] MEDS: CYCLOBENZAPRINE HCL 10 MG TABLET (FP) PO SCH (06:09)
[2018-08-10] MEDS: METHADONE 120 MG, METHADONE 30 MG PO SCH (06:10)
[2018-08-10 06:42] VITALS: TEMP 98
[2018-08-10] MEDS ORDERED: TAMSULOSIN HCL 0.4 MG CAP PO SCH (08:30)
[2018-08-10] MEDS: PRENATAL VITAMINS W/ FOLIC ACID TABLET (FP) PO SCH (09:03)
[2018-08-10] MEDS: BUDESONIDE/FORMETEROL FUMARATE 160/4.5 mcg INHALER IH SCH (09:04)
[2018-08-10] MEDS: METHYL SALICYLATE/MENTHOL OINT 30 GM TUBE TP SCH (09:04)
[2018-08-10] MEDS: LIDOCAINE 5% TOPICAL PATCH TP SCH (09:04)
[2018-08-10] MEDS: IBUPROFEN 400 MG TABLET (FP) PO PRN (09:06)
[2018-08-10] MEDS: NICOTINE 21 MG/24 HOURS TOPICAL PATCH TD SCH (09:30)
--- NOTE | 2018-08-10 09:55 | PN ---
[facility] Progress Note Note: PT COMPLETED DETOX AND DISCHARGED TODAY. PT MET WITH HIS COUNSELOR AND HAS BEEN REFERRED BACK TO HIS [facility] FOR CD AFTERCARE. PT REPORTS HE HAS [facility] PCP DR. DODSON ON [place], [place] FOR MEDICAL MANAGEMENT. [facility] ELECTRONICALLY SENT TO [facility] FOR PT PAYMENT ANALYST UPON DISCHARGE. ALERT O X 3. Home Medications Medication Instructions Recorded Budesonide/Formeterol Fumarate 1 inh PO BID 07/29/18 [SYMBICORT 160/4.5mcg -] Albuterol Sulfate Inhaler - 2 puff IH QID PRN #1 inhaler 08/10/18 [Ventolin HFA Inhaler -] Hydrochlorothiazide [Hctz -] 25 mg PO DAILY #14 tablet 08/10/18 Lisinopril 20 mg PO DAILY #14 tablet 08/10/18 Tamsulosin HCl 0.4 mg PO DAILY #14 capsule 08/10/18 Vital Signs - 24 hr 08/09/18 08/09/18 08/10/18 15:10 20:53 00:30 Temperature Pulse Rate 78 90 Respiratory 18 18 Rate Blood Pressure 110/63 121/74 08/10/18 08/10/18 08/10/18 03:30 06:41 10:00 Temperature 98.0 F Pulse Rate 84 99 H Respiratory 18 18 Rate Blood Pressure 139/91 126/78 NAD MEDICALLY STABLE PLAN:FOLLOW UP WITH CD AND MEDICAL MANAGEMENT RECOMMENDATIONS INDICATED. FOLLOW UP WITH DR. DODSON WITHIN 1-2 WEEKS AFTER DISCHARGE.
[2018-08-10] MEDS ORDERED: LISINOPRIL 10 MG TABLET (FP) PO SCH (10:00)
[2018-08-10] MEDS ORDERED: LISINOPRIL 20 MG TABLET (FP) PO SCH (10:00)
[2018-08-10] MEDS ORDERED: HYDROCHLOROTHIAZIDE 25 MG TABLET (FP) PO SCH (10:00)
[2018-08-10 10:36] VITALS: BP 126/78; PULSE 99
== END 2018-08-10 09:35 | disposition home or self-care (01) | DRG 772 ==
LOC: YASAS 14:10 → Y5N 14:11
PROVIDERS: ADMIT Neuromusculoskeletal Medicine & OMM; ATTEND Neuromusculoskeletal Medicine & OMM
PROC: HZ42ZZZ Group Counseling for Substance Abuse Treatment, Cognitive-Behavioral (ICD-10-PCS; principal; 2018-07-29)
DX: F10.20 Alcohol dependence, uncomplicated (principal); F11.20 Opioid dependence, uncomplicated; F17.210 Nicotine dependence, cigarettes, uncomplicated; I10 Essential (primary) hypertension; J45.20 Mild intermittent asthma, uncomplicated; B18.2 Chronic viral hepatitis C; M79.605 Pain in left leg; G89.29 Other chronic pain; M54.9 Dorsalgia, unspecified

== ENCOUNTER 2020-03-18 10:57 | Inpatient (IN) | payer OTHER ==
[2020-03-18 12:13] VITALS: BMI 29.8
[2020-03-18] MEDS ORDERED: ACETAMINOPHEN 325 MG TABLET (FP) PO PRN (12:58)
[2020-03-18] MEDS ORDERED: MAGNESIUM CITRATE 300 ML BOTTLE PO PRN (12:58)
[2020-03-18] MEDS ORDERED: NICOTINE POLACRILEX 2 MG GUM BUC PRN (12:58)
[2020-03-18] MEDS ORDERED: MAG HYDROX/AL HYDROX/SIMETH 30 ML UNIT-DOSE CUP PO PRN (12:58)
[2020-03-18] MEDS ORDERED: MAGNESIUM HYDROX 2400MG/30ML ORAL SUSPENSION 30 ML CUP PO PRN (12:58)
[2020-03-18] MEDS ORDERED: chlordiazePOXIDE HCL 25 MG CAPSULE PO PRN (12:58)
[2020-03-18] MEDS ORDERED: ONDANSETRON *ODT* 4 MG TABLET SL PRN (12:58)
[2020-03-18] MEDS ORDERED: MENTHOL/PHENOL 1 EACH UD MM PRN (12:58)
[2020-03-18] MEDS ORDERED: BISMUTH SUBSALICYLATE 524 MG/30 ML UD PO PRN (12:58)
[2020-03-18] MEDS ORDERED: IBUPROFEN 400 MG TABLET (FP) PO ONE (13:22)
[2020-03-18] MEDS: IBUPROFEN 400 MG TABLET (FP) PO PRN (13:39)
[2020-03-18] MEDS: NICOTINE 21 MG/24 HOURS TOPICAL PATCH TD SCH (14:23)
[2020-03-18] MEDS: LISINOPRIL 10 MG TABLET PO SCH (14:23)
[2020-03-18] MEDS: hydrOXYzine PAMOATE 25 MG CAPSULE (FP) PO SCH ×3 (14:23→22:10)
[2020-03-18 17:13] LABS: HEMATOCRIT 40.1 % (35.4-49); HEMOGLOBIN 13.4 GM/dL (11.7-16.9); MCHC 33.3 g/dl (32.0-35.9); MEAN PLT VOLUME 9.1 fl (7.5-11.1); PLATELET COUNT 231 K/MM3 (134-434); POTASSIUM 3.8 mmol/L (3.5-5.1); RBC 4.31 M/mm3 (4.00-5.60); RDW 13.1 % (11.9-15.9); WHITE BLOOD COUNT 6.6 K/mm3 (4.0-10.0)
[2020-03-18 17:17] LABS: ALBUMIN 3.7 g/dl (3.4-5.0); BLOOD UREA NITROGEN 11.3 mg/dL (7-18)
[2020-03-18 17:21] LABS: BILIRUBIN,TOTAL 0.7 mg/dL (0.2-1); TOT PROT 7.6 g/dl (6.4-8.2)
[2020-03-18] MEDS: chlordiazePOXIDE HCL 25 MG CAPSULE PO SCH ×2 (17:38→22:09)
[2020-03-18 18:13] LABS: HIV INTERPRETATION NEGATIVE (NEGATIVE)
[2020-03-18] MEDS ORDERED: MASKS NR ONE (22:09)
[2020-03-18] MEDS: MELATONIN 5 MG TABLETS PO SCH (22:10)
[2020-03-18] MEDS: THIAMINE HCL 100 MG TABLET (FP) PO SCH (22:10)
[2020-03-19] MEDS ORDERED: METHADONE HCL 10 MG TABLET ONE (04:40)
[2020-03-19] MEDS ORDERED: METHADONE HCL 40 MG DISPERSABLE TABLET ONE (04:44)
[2020-03-19] MEDS: METHADONE 120 MG, METHADONE 30 MG PO SCH (05:31)
[2020-03-19] MEDS: chlordiazePOXIDE HCL 25 MG CAPSULE PO SCH ×4 (05:32→22:12)
[2020-03-19] MEDS ORDERED: METHADONE HCL 10 MG TABLET PO SCH (06:00)
[2020-03-19] MEDS: IBUPROFEN 400 MG TABLET (FP) PO PRN ×2 (06:00→17:22)
[2020-03-19] MEDS: hydrOXYzine PAMOATE 25 MG CAPSULE (FP) PO SCH ×5 (06:04→22:13)
[2020-03-19] MEDS: ACETAMINOPHEN 325 MG TABLET (FP) PO PRN (08:44)
[2020-03-19] MEDS: METHOCARBAMOL 500 MG TABLET PO PRN (09:50)
[2020-03-19] MEDS: PRENATAL VITAMINS W/ FOLIC ACID TABLET (FP) PO SCH (09:51)
[2020-03-19] MEDS: LISINOPRIL 10 MG TABLET PO SCH (09:51)
[2020-03-19] MEDS: NICOTINE 21 MG/24 HOURS TOPICAL PATCH TD SCH (09:51)
[2020-03-19] MEDS ORDERED: ONDANSETRON *ODT* 4 MG TABLET SL ONE (11:00)
[2020-03-19] MEDS ORDERED: LISINOPRIL 10 MG TABLET PO ONE (14:00)
[2020-03-19] MEDS: HYDROCHLOROTHIAZIDE 25 MG TABLET (FP) PO SCH (14:01)
[2020-03-19] MEDS ORDERED: TAMSULOSIN HCL 0.4 MG CAP PO ONE (14:45)
[2020-03-19] MEDS ORDERED: MAGNESIUM HYDROX 2400MG/30ML ORAL SUSPENSION 30 ML CUP PO ONE (15:00)
[2020-03-19] MEDS ORDERED: ALBUTEROL SO4 HFA INHALER IH ONE (20:49)
[2020-03-19] MEDS: ALBUTEROL SO4 HFA INHALER IH PRN (21:15)
[2020-03-19] MEDS: THIAMINE HCL 100 MG TABLET (FP) PO SCH (22:11)
[2020-03-19] MEDS: MELATONIN 5 MG TABLETS PO SCH (22:11)
[2020-03-19] MEDS: DOCUSATE SODIUM 100 MG CAPSULE (FP) PO SCH (22:11)
[2020-03-20] MEDS: ALBUTEROL SO4 HFA INHALER IH PRN ×2 (02:53→13:30)
[2020-03-20] MEDS ORDERED: METHADONE HCL 10 MG TABLET ONE (03:44)
[2020-03-20] MEDS ORDERED: METHADONE HCL 40 MG DISPERSABLE TABLET ONE (03:44)
[2020-03-20] MEDS: chlordiazePOXIDE HCL 25 MG CAPSULE PO SCH ×4 (06:17→22:02)
[2020-03-20] MEDS: METHADONE 120 MG, METHADONE 30 MG PO SCH (06:18)
[2020-03-20] MEDS: hydrOXYzine PAMOATE 25 MG CAPSULE (FP) PO SCH ×5 (06:18→22:02)
[2020-03-20] MEDS: IBUPROFEN 400 MG TABLET (FP) PO PRN ×2 (06:18→13:28)
[2020-03-20] MEDS: METHOCARBAMOL 500 MG TABLET PO PRN ×2 (09:45→17:38)
[2020-03-20] MEDS: PRENATAL VITAMINS W/ FOLIC ACID TABLET (FP) PO SCH (09:45)
[2020-03-20] MEDS: HYDROCHLOROTHIAZIDE 25 MG TABLET (FP) PO SCH (09:45)
[2020-03-20] MEDS: TAMSULOSIN HCL 0.4 MG CAP PO SCH (09:45)
[2020-03-20] MEDS: NICOTINE 21 MG/24 HOURS TOPICAL PATCH TD SCH (09:45)
[2020-03-20] MEDS: ACETAMINOPHEN 325 MG TABLET (FP) PO PRN (09:47)
[2020-03-20] MEDS ORDERED: LISINOPRIL 20 MG TABLET PO ONE (10:00)
[2020-03-20] MEDS: LACTULOSE 20 GM/30 ML UDC (FOR ORAL USE ONLY) PO SCH ×2 (13:28→22:03)
[2020-03-20] MEDS: DOCUSATE SODIUM 100 MG CAPSULE (FP) PO SCH (22:02)
[2020-03-20] MEDS: THIAMINE HCL 100 MG TABLET (FP) PO SCH (22:02)
[2020-03-20] MEDS: MELATONIN 5 MG TABLETS PO SCH (22:02)
[2020-03-21] MEDS ORDERED: chlordiazePOXIDE HCL 10 MG CAPSULE PO PRN
[2020-03-21] MEDS: IBUPROFEN 400 MG TABLET (FP) PO PRN ×3 (03:24→21:15)
[2020-03-21] MEDS: METHOCARBAMOL 500 MG TABLET PO PRN ×3 (03:25→21:16)
[2020-03-21] MEDS ORDERED: METHADONE HCL 40 MG DISPERSABLE TABLET ONE (03:49)
[2020-03-21] MEDS ORDERED: METHADONE HCL 10 MG TABLET ONE (03:49)
[2020-03-21] MEDS: chlordiazePOXIDE HCL 10 MG CAPSULE PO SCH ×4 (05:17→22:22)
[2020-03-21] MEDS: METHADONE 120 MG, METHADONE 30 MG PO SCH (05:17)
[2020-03-21] MEDS: hydrOXYzine PAMOATE 25 MG CAPSULE (FP) PO SCH ×5 (05:18→22:22)
[2020-03-21] MEDS: LACTULOSE 20 GM/30 ML UDC (FOR ORAL USE ONLY) PO SCH ×4 (05:18→22:22)
[2020-03-21] MEDS: NICOTINE 21 MG/24 HOURS TOPICAL PATCH TD SCH (10:29)
[2020-03-21] MEDS: TAMSULOSIN HCL 0.4 MG CAP PO SCH (10:30)
[2020-03-21] MEDS: PRENATAL VITAMINS W/ FOLIC ACID TABLET (FP) PO SCH (10:30)
[2020-03-21] MEDS: HYDROCHLOROTHIAZIDE 25 MG TABLET (FP) PO SCH (10:30)
[2020-03-21 21:24] LABS: URINE APPEARANCE CLEAR; URINE BILIRUBIN NEGATIVE (NEGATIVE); URINE COLOR YELLOW; URINE GLUCOSE (UA) NEGATIVE (NEGATIVE); URINE KETONE NEGATIVE (NEGATIVE); URINE LEUK ESTERASE NEGATIVE (NEGATIVE); URINE NITRITE NEGATIVE (NEGATIVE); URINE PROTEIN NEGATIVE (NEGATIVE); URINE UROBILINOGEN 0.2 mg/dL (0.2-1.0)
[2020-03-21] MEDS: THIAMINE HCL 100 MG TABLET (FP) PO SCH (22:22)
[2020-03-21] MEDS: DOCUSATE SODIUM 100 MG CAPSULE (FP) PO SCH (22:22)
[2020-03-21] MEDS: MELATONIN 5 MG TABLETS PO SCH (22:22)
[2020-03-22] MEDS ORDERED: METHADONE HCL 10 MG TABLET ONE (03:45)
[2020-03-22] MEDS ORDERED: METHADONE HCL 40 MG DISPERSABLE TABLET ONE (03:46)
[2020-03-22] MEDS: hydrOXYzine PAMOATE 25 MG CAPSULE (FP) PO SCH ×5 (05:51→21:59)
[2020-03-22] MEDS: METHADONE 120 MG, METHADONE 30 MG PO SCH (05:51)
[2020-03-22] MEDS: chlordiazePOXIDE HCL 10 MG CAPSULE PO SCH ×2 (05:51→17:09)
[2020-03-22] MEDS: LACTULOSE 20 GM/30 ML UDC (FOR ORAL USE ONLY) PO SCH ×3 (07:32→21:59)
[2020-03-22] MEDS: HYDROCHLOROTHIAZIDE 25 MG TABLET (FP) PO SCH (10:19)
[2020-03-22] MEDS: TAMSULOSIN HCL 0.4 MG CAP PO SCH (10:19)
[2020-03-22] MEDS: PRENATAL VITAMINS W/ FOLIC ACID TABLET (FP) PO SCH (10:19)
[2020-03-22] MEDS: NICOTINE 21 MG/24 HOURS TOPICAL PATCH TD SCH (10:20)
[2020-03-22] MEDS: METHOCARBAMOL 500 MG TABLET PO PRN (10:40)
[2020-03-22] MEDS: IBUPROFEN 400 MG TABLET (FP) PO PRN ×2 (10:40→17:09)
[2020-03-22] MEDS ORDERED: LIDOCAINE 5% TOPICAL PATCH TP ONE (11:46)
[2020-03-22] MEDS: MELATONIN 5 MG TABLETS PO SCH (21:59)
[2020-03-22] MEDS: DOCUSATE SODIUM 100 MG CAPSULE (FP) PO SCH (21:59)
[2020-03-22] MEDS: THIAMINE HCL 100 MG TABLET (FP) PO SCH (21:59)
[2020-03-22] MEDS ORDERED: LIDOCAINE PATCH REMOVAL MC SCH (22:00)
[2020-03-22] MEDS: ALBUTEROL SO4 HFA INHALER IH PRN (22:01)
[2020-03-23] MEDS: METHOCARBAMOL 500 MG TABLET PO PRN (01:45)
[2020-03-23] MEDS: IBUPROFEN 400 MG TABLET (FP) PO PRN (01:46)
[2020-03-23] MEDS ORDERED: METHADONE HCL 40 MG DISPERSABLE TABLET ONE (04:46)
[2020-03-23] MEDS ORDERED: METHADONE HCL 10 MG TABLET ONE (04:46)
[2020-03-23] MEDS ORDERED: chlordiazePOXIDE HCL 10 MG CAPSULE PO ONE (05:00)
[2020-03-23] MEDS: hydrOXYzine PAMOATE 25 MG CAPSULE (FP) PO SCH (06:30)
[2020-03-23] MEDS: METHADONE 120 MG, METHADONE 30 MG PO SCH (06:30)
[2020-03-23] MEDS: LACTULOSE 20 GM/30 ML UDC (FOR ORAL USE ONLY) PO SCH (06:47)
[2020-03-23 09:05] VITALS: BP 127/80; PULSE 95; TEMP 97.1
== END 2020-03-23 09:18 | disposition home or self-care (01) | DRG 773 ==
LOC: YASAS 10:57 → MERGE 13:11 → Y3N 13:11
PROVIDERS: ADMIT Allergy & Immunology; ATTEND Allergy & Immunology
PROC: HZ2ZZZZ Detoxification Services for Substance Abuse Treatment (ICD-10-PCS; principal; 2020-03-18)
DX: F10.230 Alcohol dependence with withdrawal, uncomplicated (principal); F11.20 Opioid dependence, uncomplicated; F14.20 Cocaine dependence, uncomplicated; F17.210 Nicotine dependence, cigarettes, uncomplicated; F20.9 Schizophrenia, unspecified; G47.00 Insomnia, unspecified; I10 Essential (primary) hypertension; J45.20 Mild intermittent asthma, uncomplicated; B18.2 Chronic viral hepatitis C; R26.89 Other abnormalities of gait and mobility; Z99.89 Dependence on other enabling machines and devices; R10.31 Right lower quadrant pain; M25.551 Pain in right hip; Z91.5 Personal history of self-harm; T07.XXXD Unspecified multiple injuries, subsequent encounter; W19.XXXD Unspecified fall, subsequent encounter
CPT/HCPCS: 36415; 73502-TC-RT-FY; 80053; 81003; 82140; 82962; 85027; 86780; 87389; 93005; 93010; C9803; U0003

== ENCOUNTER 2020-08-30 10:22 | Inpatient (IN) | payer OTHER ==
[2020-08-30 10:46] VITALS: BMI 29.5
[2020-08-30] MEDS ORDERED: MAGNESIUM CITRATE 300 ML BOTTLE PO PRN (12:02)
[2020-08-30] MEDS ORDERED: NICOTINE POLACRILEX 2 MG GUM BUC PRN (12:02)
[2020-08-30] MEDS ORDERED: METHOCARBAMOL 500 MG TABLET PO PRN (12:02)
[2020-08-30] MEDS ORDERED: chlordiazePOXIDE HCL 25 MG CAPSULE PO PRN (12:02)
[2020-08-30] MEDS ORDERED: MAGNESIUM HYDROX 2400MG/30ML ORAL SUSPENSION 30 ML CUP PO PRN (12:02)
[2020-08-30] MEDS ORDERED: cloNIDine HCL 0.1 MG TABLET PO PRN (12:02)
[2020-08-30] MEDS ORDERED: ONDANSETRON *ODT* 4 MG TABLET SL PRN (12:02)
[2020-08-30] MEDS ORDERED: MENTHOL/PHENOL 1 EACH UD MM PRN (12:02)
[2020-08-30] MEDS ORDERED: BISMUTH SUBSALICYLATE 524 MG/30 ML UD PO PRN (12:02)
[2020-08-30] MEDS ORDERED: MAG HYDROX/AL HYDROX/SIMETH 30 ML UNIT-DOSE CUP PO PRN (12:02)
[2020-08-30] MEDS ORDERED: ACETAMINOPHEN 325 MG TABLET (FP) PO PRN ×2 (12:02)
[2020-08-30] MEDS ORDERED: ALBUTEROL SO4 HFA INHALER IH PRN (12:03)
[2020-08-30] MEDS ORDERED: METHADONE HCL 10 MG TABLET (FOR DETOX USE ONLY) PO ONE (12:15)
[2020-08-30 14:43] LABS: ALBUMIN 3.5 g/dl (3.4-5.0); BLOOD UREA NITROGEN 16.6 mg/dL (7-18); CALCIUM 8.9 mg/dL (8.5-10.1)
[2020-08-30 14:46] LABS: CREATININE 0.8 mg/dL (0.55-1.3)
[2020-08-30 14:48] LABS: HEMATOCRIT 38.7 % (35.4-49); HEMOGLOBIN 13.3 GM/dL (11.7-16.9); MCH 31.7 pg (25.7-33.7); MCHC 34.4 g/dl (32.0-35.9); MEAN PLT VOLUME 8.9 fl (7.5-11.1); PLATELET COUNT 317 K/MM3 (134-434); RBC 4.21 M/mm3 (4.00-5.60); RDW 12.8 % (11.9-15.9); WHITE BLOOD COUNT 5.9 K/mm3 (4.0-10.0)
[2020-08-30 14:49] LABS: BILIRUBIN,TOTAL 0.3 mg/dL (0.2-1); TOT PROT 7.6 g/dl (6.4-8.2)
[2020-08-30] MEDS: IBUPROFEN 400 MG TABLET (FP) PO PRN (15:11)
[2020-08-30] MEDS: chlordiazePOXIDE HCL 25 MG CAPSULE PO SCH ×3 (15:12→22:50)
[2020-08-30] MEDS: PRENATAL VITAMINS W/ FOLIC ACID TABLET (FP) PO SCH (15:13)
[2020-08-30] MEDS: NICOTINE 21 MG/24 HOURS TOPICAL PATCH TD SCH (15:13)
[2020-08-30] MEDS: hydrOXYzine PAMOATE 25 MG CAPSULE (FP) PO SCH ×3 (15:13→22:54)
[2020-08-30] MEDS: MELATONIN 5 MG TABLETS PO SCH (22:50)
[2020-08-30] MEDS: THIAMINE HCL 100 MG TABLET (FP) PO SCH (22:50)
[2020-08-30] MEDS: BUDESONIDE/FORMETEROL FUMARATE 160/4.5 mcg INHALER IH SCH (22:53)
[2020-08-31] MEDS: chlordiazePOXIDE HCL 25 MG CAPSULE PO SCH ×4 (05:35→22:50)
[2020-08-31] MEDS: hydrOXYzine PAMOATE 25 MG CAPSULE (FP) PO SCH ×5 (05:36→22:49)
[2020-08-31] MEDS ORDERED: METHADONE (DETOX) 20 MG, METHADONE (DETOX) 5 MG PO ONE (10:00)
[2020-08-31] MEDS: LISINOPRIL 20 MG TABLET PO SCH (10:24)
[2020-08-31] MEDS: PRENATAL VITAMINS W/ FOLIC ACID TABLET (FP) PO SCH (10:24)
[2020-08-31] MEDS: HYDROCHLOROTHIAZIDE 25 MG TABLET (FP) PO SCH (10:24)
[2020-08-31] MEDS ORDERED: METHADONE HCL 10 MG TABLET (FOR DETOX USE ONLY) ONE (10:28)
[2020-08-31] MEDS ORDERED: METHADONE HCL 5 MG TABLET (FOR DETOX USE ONLY) ONE (10:28)
[2020-08-31] MEDS: NICOTINE 21 MG/24 HOURS TOPICAL PATCH TD SCH (10:30)
[2020-08-31] MEDS: BUDESONIDE/FORMETEROL FUMARATE 160/4.5 mcg INHALER IH SCH ×2 (10:31→22:50)
[2020-08-31] MEDS: IBUPROFEN 400 MG TABLET (FP) PO PRN (18:11)
[2020-08-31] MEDS: MELATONIN 5 MG TABLETS PO SCH (22:49)
[2020-08-31] MEDS: THIAMINE HCL 100 MG TABLET (FP) PO SCH (22:49)
[2020-09-01] MEDS: IBUPROFEN 400 MG TABLET (FP) PO PRN ×2 (01:35→08:30)
[2020-09-01] MEDS: chlordiazePOXIDE HCL 25 MG CAPSULE PO SCH ×2 (05:50→11:00)
[2020-09-01] MEDS: hydrOXYzine PAMOATE 25 MG CAPSULE (FP) PO SCH ×2 (06:23→10:07)
[2020-09-01 09:44] VITALS: BP 146/80; PULSE 99; TEMP 97
[2020-09-01] MEDS ORDERED: METHADONE HCL 10 MG TABLET (FOR DETOX USE ONLY) PO ONE (10:00)
[2020-09-01] MEDS: HYDROCHLOROTHIAZIDE 25 MG TABLET (FP) PO SCH (10:05)
[2020-09-01] MEDS: NICOTINE 21 MG/24 HOURS TOPICAL PATCH TD SCH (10:05)
[2020-09-01] MEDS: LISINOPRIL 20 MG TABLET PO SCH (10:05)
[2020-09-01] MEDS: PRENATAL VITAMINS W/ FOLIC ACID TABLET (FP) PO SCH (10:06)
[2020-09-01] MEDS: BUDESONIDE/FORMETEROL FUMARATE 160/4.5 mcg INHALER IH SCH (10:06)
[2020-09-02] MEDS ORDERED: chlordiazePOXIDE HCL 10 MG CAPSULE PO PRN
[2020-09-02] MEDS ORDERED: chlordiazePOXIDE HCL 10 MG CAPSULE PO SCH (05:00)
[2020-09-02] MEDS ORDERED: METHADONE (DETOX) 10 MG, METHADONE (DETOX) 5 MG PO ONE (10:00)
[2020-09-03] MEDS ORDERED: chlordiazePOXIDE HCL 10 MG CAPSULE PO SCH (05:00)
[2020-09-03] MEDS ORDERED: METHADONE HCL 10 MG TABLET (FOR DETOX USE ONLY) PO ONE (10:00)
[2020-09-04] MEDS ORDERED: chlordiazePOXIDE HCL 10 MG CAPSULE PO ONE (05:00)
[2020-09-04] MEDS ORDERED: METHADONE HCL 5 MG TABLET (FOR DETOX USE ONLY) PO ONE (06:00)
== END 2020-09-01 11:40 | disposition left against medical advice (07) | DRG 770 ==
LOC: YASAS 10:22 → Y6N 14:09
PROVIDERS: ADMIT Allergy & Immunology; ATTEND Allergy & Immunology
PROC: HZ2ZZZZ Detoxification Services for Substance Abuse Treatment (ICD-10-PCS; principal; 2020-08-30)
DX: F11.23 Opioid dependence with withdrawal (principal); F10.230 Alcohol dependence with withdrawal, uncomplicated; F14.20 Cocaine dependence, uncomplicated; F17.210 Nicotine dependence, cigarettes, uncomplicated; I10 Essential (primary) hypertension; J45.20 Mild intermittent asthma, uncomplicated; M17.11 Unilateral primary osteoarthritis, right knee; B18.2 Chronic viral hepatitis C
CPT/HCPCS: 36415; 80053; 85027; 86780; C9803; U0003; U0005

== ENCOUNTER 2020-09-24 11:45 | Inpatient (IN) | payer OTHER ==
[2020-09-24 12:48] VITALS: BMI 27.7
[2020-09-24] MEDS ORDERED: ALBUTEROL SO4 HFA INHALER IH PRN (12:53)
[2020-09-24] MEDS ORDERED: LORazepam 1 MG TABLET PO PRN (12:54)
[2020-09-24] MEDS ORDERED: MAGNESIUM HYDROX 2400MG/30ML ORAL SUSPENSION 30 ML CUP PO PRN (12:54)
[2020-09-24] MEDS ORDERED: MAGNESIUM CITRATE 300 ML BOTTLE PO PRN (12:54)
[2020-09-24] MEDS ORDERED: MENTHOL/PHENOL 1 EACH UD MM PRN (12:54)
[2020-09-24] MEDS ORDERED: NICOTINE POLACRILEX 2 MG GUM BUC PRN (12:54)
[2020-09-24] MEDS ORDERED: ONDANSETRON *ODT* 4 MG TABLET SL PRN (12:54)
[2020-09-24] MEDS ORDERED: MAG HYDROX/AL HYDROX/SIMETH 30 ML UNIT-DOSE CUP PO PRN (12:54)
[2020-09-24] MEDS ORDERED: BISMUTH SUBSALICYLATE 524 MG/30 ML PO PRN (12:54)
[2020-09-24] MEDS ORDERED: ACETAMINOPHEN 325 MG TABLET (FP) PO PRN ×2 (12:54)
[2020-09-24] MEDS: hydrOXYzine PAMOATE 25 MG CAPSULE (FP) PO SCH ×3 (14:01→22:57)
[2020-09-24] MEDS: NICOTINE 14 MG/24 HOURS TOPICAL PATCH TD SCH (14:02)
[2020-09-24] MEDS: LISINOPRIL 20 MG TABLET PO SCH (14:02)
[2020-09-24] MEDS: PRENATAL VITAMINS W/ FOLIC ACID TABLET (FP) PO SCH (14:03)
[2020-09-24] MEDS: METHOCARBAMOL 500 MG TABLET PO PRN (14:05)
[2020-09-24] MEDS: IBUPROFEN 400 MG TABLET (FP) PO PRN ×2 (14:06→22:58)
[2020-09-24 16:59] LABS: CALCIUM 9.1 mg/dL (8.5-10.1)
[2020-09-24 17:00] LABS: ALBUMIN 3.5 g/dl (3.4-5.0); BLOOD UREA NITROGEN 6.3 mg/dL (7-18)
[2020-09-24 17:01] LABS: HEMATOCRIT 40.6 % (35.4-49); HEMOGLOBIN 13.5 GM/dL (11.7-16.9); MCH 30.9 pg (25.7-33.7); MCHC 33.4 g/dl (32.0-35.9); MEAN CELL VOLUME 92.5 fl (80-96); MEAN PLT VOLUME 9.2 fl (7.5-11.1); PLATELET COUNT 302 K/MM3 (134-434); RBC 4.38 M/mm3 (4.00-5.60); RDW 13.2 % (11.9-15.9); WHITE BLOOD COUNT 5.4 K/mm3 (4.0-10.0)
[2020-09-24 17:03] LABS: CREATININE 0.6 mg/dL (0.55-1.3)
[2020-09-24 17:04] LABS: BILIRUBIN,TOTAL 0.3 mg/dL (0.2-1)
[2020-09-24 17:05] LABS: TOT PROT 7.6 g/dl (6.4-8.2)
[2020-09-24] MEDS: LORazepam 2 MG TABLET PO SCH ×2 (17:48→22:57)
[2020-09-24] MEDS: MELATONIN 5 MG TABLETS PO SCH (22:57)
[2020-09-24] MEDS: THIAMINE HCL 100 MG TABLET (FP) PO SCH (22:57)
[2020-09-24] MEDS: BACITRACIN 0.9 GM PACKET TP SCH (22:57)
[2020-09-25] MEDS: LORazepam 2 MG TABLET PO SCH ×4 (06:16→22:20)
[2020-09-25] MEDS: hydrOXYzine PAMOATE 25 MG CAPSULE (FP) PO SCH ×5 (06:17→22:20)
[2020-09-25] MEDS: METHOCARBAMOL 500 MG TABLET PO PRN ×2 (06:19→15:29)
[2020-09-25] MEDS: HYDROCHLOROTHIAZIDE 25 MG TABLET (FP) PO SCH (10:21)
[2020-09-25] MEDS: PRENATAL VITAMINS W/ FOLIC ACID TABLET (FP) PO SCH (10:21)
[2020-09-25] MEDS: TAMSULOSIN HCL 0.4 MG CAP PO SCH (10:22)
[2020-09-25] MEDS: LISINOPRIL 20 MG TABLET PO SCH (10:22)
[2020-09-25] MEDS: METHADONE HCL 40 MG DISPERSABLE TABLET PO SCH (10:23)
[2020-09-25] MEDS: BACITRACIN 0.9 GM PACKET TP SCH ×2 (10:26→22:20)
[2020-09-25] MEDS: NICOTINE 14 MG/24 HOURS TOPICAL PATCH TD SCH (10:26)
[2020-09-25] MEDS: IBUPROFEN 400 MG TABLET (FP) PO PRN (15:29)
[2020-09-25] MEDS: MELATONIN 5 MG TABLETS PO SCH (22:20)
[2020-09-25] MEDS: THIAMINE HCL 100 MG TABLET (FP) PO SCH (22:20)
[2020-09-26] MEDS: METHOCARBAMOL 500 MG TABLET PO PRN (02:50)
[2020-09-26] MEDS: IBUPROFEN 400 MG TABLET (FP) PO PRN ×2 (02:50→11:09)
[2020-09-26] MEDS: hydrOXYzine PAMOATE 25 MG CAPSULE (FP) PO SCH ×5 (05:45→22:28)
[2020-09-26] MEDS: LORazepam 1 MG TABLET PO SCH ×4 (05:45→22:28)
[2020-09-26] MEDS: METHADONE HCL 40 MG DISPERSABLE TABLET PO SCH (05:45)
[2020-09-26] MEDS: BACITRACIN 0.9 GM PACKET TP SCH ×2 (11:08→22:28)
[2020-09-26] MEDS: LISINOPRIL 20 MG TABLET PO SCH (11:09)
[2020-09-26] MEDS: PRENATAL VITAMINS W/ FOLIC ACID TABLET (FP) PO SCH (11:09)
[2020-09-26] MEDS: TAMSULOSIN HCL 0.4 MG CAP PO SCH (11:10)
[2020-09-26] MEDS: HYDROCHLOROTHIAZIDE 25 MG TABLET (FP) PO SCH (11:10)
[2020-09-26] MEDS: NICOTINE 14 MG/24 HOURS TOPICAL PATCH TD SCH (11:11)
[2020-09-26] MEDS: MELATONIN 5 MG TABLETS PO SCH (22:28)
[2020-09-26] MEDS: THIAMINE HCL 100 MG TABLET (FP) PO SCH (22:28)
[2020-09-27] MEDS ORDERED: LORazepam 0.5 MG TABLET PO PRN
[2020-09-27] MEDS ORDERED: LORazepam 0.5 MG TABLET PO SCH (05:00)
[2020-09-27] MEDS: hydrOXYzine PAMOATE 25 MG CAPSULE (FP) PO SCH ×2 (05:57→09:52)
[2020-09-27] MEDS: METHADONE HCL 40 MG DISPERSABLE TABLET PO SCH (05:57)
[2020-09-27] MEDS: IBUPROFEN 400 MG TABLET (FP) PO PRN (06:01)
[2020-09-27] MEDS: METHOCARBAMOL 500 MG TABLET PO PRN (06:01)
[2020-09-27 08:06] LABS: SARS-CoV-2 NAA Not Detected (Not Detected)
[2020-09-27 09:34] VITALS: BP 120/64; PULSE 110; TEMP 97.7
[2020-09-27] MEDS: PRENATAL VITAMINS W/ FOLIC ACID TABLET (FP) PO SCH (09:50)
[2020-09-27] MEDS: LISINOPRIL 20 MG TABLET PO SCH (09:50)
[2020-09-27] MEDS: TAMSULOSIN HCL 0.4 MG CAP PO SCH (09:50)
[2020-09-27] MEDS: BACITRACIN 0.9 GM PACKET TP SCH (09:50)
[2020-09-27] MEDS: HYDROCHLOROTHIAZIDE 25 MG TABLET (FP) PO SCH (09:50)
[2020-09-27] MEDS: NICOTINE 14 MG/24 HOURS TOPICAL PATCH TD SCH (09:50)
[2020-09-28] MEDS ORDERED: LORazepam 0.5 MG TABLET PO ONE (05:00)
== END 2020-09-27 09:59 | disposition home or self-care (01) | DRG 773 ==
LOC: YASAS 11:45 → Y6N 13:16
PROVIDERS: ADMIT Allergy & Immunology; ATTEND Allergy & Immunology
PROC: HZ2ZZZZ Detoxification Services for Substance Abuse Treatment (ICD-10-PCS; principal; 2020-09-24)
DX: F10.230 Alcohol dependence with withdrawal, uncomplicated (principal); F11.20 Opioid dependence, uncomplicated; F17.210 Nicotine dependence, cigarettes, uncomplicated; F20.9 Schizophrenia, unspecified; F41.9 Anxiety disorder, unspecified; I10 Essential (primary) hypertension; J45.20 Mild intermittent asthma, uncomplicated; B18.2 Chronic viral hepatitis C; M19.90 Unspecified osteoarthritis, unspecified site; N40.0 Benign prostatic hyperplasia without lower urinary tract symptoms; Z99.89 Dependence on other enabling machines and devices
CPT/HCPCS: 36415; 80053; 82947; 82962; 85027; 86780; 93005; 93010; C9803; U0003; U0005

== ENCOUNTER 2021-01-14 16:25 | Inpatient (IN) | payer OTHER ==
[2021-01-14] MEDS ORDERED: ONDANSETRON *ODT* 4 MG TABLET SL PRN (20:40)
[2021-01-14] MEDS ORDERED: MENTHOL/PHENOL 1 EACH UD MM PRN (20:40)
[2021-01-14] MEDS ORDERED: NALOXONE (NARCAN) HCL 4 MG/0.1 ML SPRAY NS PRN (20:40)
[2021-01-14] MEDS ORDERED: MAG HYDROX/AL HYDROX/SIMETH 30 ML UNIT-DOSE CUP PO PRN (20:40)
[2021-01-14] MEDS ORDERED: MAGNESIUM CITRATE 300 ML BOTTLE PO PRN (20:40)
[2021-01-14] MEDS ORDERED: BISMUTH SUBSALICYLATE 524 MG/30 ML PO PRN (20:40)
[2021-01-14] MEDS ORDERED: ACETAMINOPHEN 325 MG TABLET (FP) PO PRN (20:40)
[2021-01-14] MEDS ORDERED: DICYCLOMINE HCL 10 MG CAPSULE PO PRN (20:40)
[2021-01-14] MEDS ORDERED: MAGNESIUM HYDROX 2400MG/30ML ORAL SUSPENSION 30 ML CUP PO PRN (20:40)
[2021-01-14] MEDS ORDERED: NALOXONE HCL 0.4 MG/ML VIAL IM PRN (20:40)
[2021-01-14] MEDS ORDERED: guaiFENesin 200 MG/10 ML 10 ML UNIT-DOSE CUPS PO PRN (20:40)
[2021-01-14] MEDS ORDERED: P-EPHED 60MG/TRIPROLIDI 2.5MG TABLET PO PRN (20:40)
[2021-01-14 21:12] VITALS: BMI 30.9
[2021-01-14] MEDS: THIAMINE HCL 100 MG TABLET (FP) PO SCH (23:39)
[2021-01-14] MEDS: MELATONIN 5 MG TABLETS PO SCH (23:39)
[2021-01-15] MEDS ORDERED: methaDONE HCL 40 MG DISPERSABLE TABLET PO SCH (08:45)
[2021-01-15] MEDS ORDERED: diazePAM 5 MG TABLET PO PRN (10:00)
[2021-01-15] MEDS: NICOTINE 14 MG/24 HOURS TOPICAL PATCH TD SCH (10:23)
[2021-01-15] MEDS: PRENATAL VITAMINS W/ FOLIC ACID TABLET (FP) PO SCH (10:23)
[2021-01-15] MEDS ORDERED: methaDONE HCL 40 MG DISPERSABLE TABLET ONE (10:24)
[2021-01-15] MEDS ORDERED: methaDONE HCL 10 MG TABLET ONE (10:24)
[2021-01-15] MEDS: ACETAMINOPHEN 325 MG TABLET (FP) PO PRN (10:28)
[2021-01-15] MEDS: diazePAM 5 MG TABLET PO SCH ×3 (12:19→22:58)
[2021-01-15 12:45] LABS: HEMATOCRIT 30.8 % (35.4-49); HEMOGLOBIN 10.5 GM/dL (11.7-16.9); MCH 30.1 pg (25.7-33.7); MCHC 34.1 g/dl (32.0-35.9); MEAN CELL VOLUME 88.5 fl (80-96); PLATELET COUNT 511 10^3/uL (134-434); RBC 3.48 M/mm3 (4.00-5.60); RDW 14.7 % (11.9-15.9); WHITE BLOOD COUNT 5.7 K/mm3 (4.0-10.0)
[2021-01-15 13:07] LABS: ALBUMIN 2.5 g/dl (3.4-5.0); BLOOD UREA NITROGEN 5.4 mg/dL (7-18); CALCIUM 8.7 mg/dL (8.5-10.1)
[2021-01-15 13:10] LABS: CREATININE 0.6 mg/dL (0.55-1.3)
[2021-01-15 13:12] LABS: BILIRUBIN,TOTAL 0.6 mg/dL (0.2-1); TOT PROT 6.9 g/dl (6.4-8.2)
[2021-01-15] MEDS: THIAMINE HCL 100 MG TABLET (FP) PO SCH (22:58)
[2021-01-15] MEDS: MELATONIN 5 MG TABLETS PO SCH (22:58)
[2021-01-16] MEDS: ACETAMINOPHEN 325 MG TABLET (FP) PO PRN (03:54)
[2021-01-16] MEDS: METHOCARBAMOL 500 MG TABLET PO PRN ×2 (03:54→22:04)
[2021-01-16] MEDS ORDERED: methaDONE HCL 40 MG DISPERSABLE TABLET ONE (04:13)
[2021-01-16] MEDS ORDERED: methaDONE HCL 10 MG TABLET ONE (04:13)
[2021-01-16] MEDS: diazePAM 5 MG TABLET PO SCH ×4 (05:16→22:03)
[2021-01-16] MEDS: IBUPROFEN 400 MG TABLET (FP) PO PRN ×2 (07:59→17:51)
[2021-01-16] MEDS: PRENATAL VITAMINS W/ FOLIC ACID TABLET (FP) PO SCH (10:18)
[2021-01-16] MEDS: NICOTINE 14 MG/24 HOURS TOPICAL PATCH TD SCH (10:18)
[2021-01-16] MEDS: NICOTINE 10 MG CARTRIDGE (INHALER) IH PRN ×2 (10:19→22:57)
[2021-01-16] MEDS: MELATONIN 5 MG TABLETS PO SCH (22:03)
[2021-01-16] MEDS: THIAMINE HCL 100 MG TABLET (FP) PO SCH (22:03)
[2021-01-17] MEDS ORDERED: methaDONE HCL 40 MG DISPERSABLE TABLET ONE (04:06)
[2021-01-17] MEDS ORDERED: methaDONE HCL 10 MG TABLET ONE (04:06)
[2021-01-17] MEDS: diazePAM 5 MG TABLET PO SCH ×3 (05:50→22:22)
[2021-01-17] MEDS ORDERED: ALBUTEROL SO4 HFA INHALER IH PRN (10:03)
[2021-01-17] MEDS: IBUPROFEN 400 MG TABLET (FP) PO PRN ×2 (10:19→16:20)
[2021-01-17] MEDS: PRENATAL VITAMINS W/ FOLIC ACID TABLET (FP) PO SCH (10:19)
[2021-01-17] MEDS: METHOCARBAMOL 500 MG TABLET PO PRN ×2 (10:20→16:20)
[2021-01-17] MEDS: LISINOPRIL 20 MG TABLET PO SCH (10:22)
[2021-01-17] MEDS: NICOTINE 14 MG/24 HOURS TOPICAL PATCH TD SCH (10:54)
[2021-01-17] MEDS: HYDROCHLOROTHIAZIDE 25 MG TABLET (FP) PO SCH (10:56)
[2021-01-17] MEDS: ACETAMINOPHEN 325 MG TABLET (FP) PO PRN (20:28)
[2021-01-17] MEDS: NICOTINE 10 MG CARTRIDGE (INHALER) IH PRN (20:31)
[2021-01-17] MEDS: THIAMINE HCL 100 MG TABLET (FP) PO SCH (22:21)
[2021-01-17] MEDS: MELATONIN 5 MG TABLETS PO SCH (22:21)
[2021-01-17] MEDS: BUDESONIDE/FORMETEROL FUMARATE 160/4.5 mcg INHALER IH SCH (23:14)
[2021-01-18] MEDS ORDERED: methaDONE HCL 40 MG DISPERSABLE TABLET ONE (04:43)
[2021-01-18] MEDS ORDERED: methaDONE HCL 10 MG TABLET ONE (04:43)
[2021-01-18] MEDS: diazePAM 5 MG TABLET PO SCH ×2 (05:39→17:58)
[2021-01-18] MEDS: IBUPROFEN 400 MG TABLET (FP) PO PRN ×2 (09:36→18:01)
[2021-01-18] MEDS: NICOTINE 14 MG/24 HOURS TOPICAL PATCH TD SCH (10:44)
[2021-01-18] MEDS: LISINOPRIL 20 MG TABLET PO SCH (10:44)
[2021-01-18] MEDS: HYDROCHLOROTHIAZIDE 25 MG TABLET (FP) PO SCH (10:44)
[2021-01-18] MEDS: METHOCARBAMOL 500 MG TABLET PO PRN ×2 (10:45→20:58)
[2021-01-18] MEDS: BUDESONIDE/FORMETEROL FUMARATE 160/4.5 mcg INHALER IH SCH ×2 (10:45→22:16)
[2021-01-18] MEDS: PRENATAL VITAMINS W/ FOLIC ACID TABLET (FP) PO SCH (10:45)
[2021-01-18] MEDS: NICOTINE 10 MG CARTRIDGE (INHALER) IH PRN (10:48)
[2021-01-18] MEDS: THIAMINE HCL 100 MG TABLET (FP) PO SCH (22:16)
[2021-01-18] MEDS: MELATONIN 5 MG TABLETS PO SCH (22:17)
[2021-01-18] MEDS: ACETAMINOPHEN 325 MG TABLET (FP) PO PRN (22:17)
[2021-01-19] MEDS ORDERED: methaDONE HCL 40 MG DISPERSABLE TABLET ONE (04:14)
[2021-01-19] MEDS ORDERED: methaDONE HCL 10 MG TABLET ONE (04:14)
[2021-01-19] MEDS ORDERED: diazePAM 5 MG TABLET PO ONE (06:00)
[2021-01-19] MEDS: METHOCARBAMOL 500 MG TABLET PO PRN (08:17)
[2021-01-19 09:57] VITALS: BP 108/66; PULSE 112; TEMP 96.8
[2021-01-19] MEDS: NICOTINE 14 MG/24 HOURS TOPICAL PATCH TD SCH (10:47)
[2021-01-19] MEDS: BUDESONIDE/FORMETEROL FUMARATE 160/4.5 mcg INHALER IH SCH (10:47)
[2021-01-19] MEDS: LISINOPRIL 20 MG TABLET PO SCH (10:47)
[2021-01-19] MEDS: HYDROCHLOROTHIAZIDE 25 MG TABLET (FP) PO SCH (10:47)
[2021-01-19] MEDS: PRENATAL VITAMINS W/ FOLIC ACID TABLET (FP) PO SCH (10:47)
[2021-01-19] MEDS: IBUPROFEN 400 MG TABLET (FP) PO PRN (10:48)
[2021-01-19] MEDS: NICOTINE 10 MG CARTRIDGE (INHALER) IH PRN (10:48)
== END 2021-01-19 12:35 | disposition other institution (70) | DRG 773 ==
LOC: EDBD → YASAS 16:25 → Y3N 20:36 → UNDOADMIN 20:36 → MERGE 20:36
PROVIDERS: ADMIT Allergy & Immunology; ATTEND Allergy & Immunology
PROC: HZ2ZZZZ Detoxification Services for Substance Abuse Treatment (ICD-10-PCS; principal; 2021-01-14)
DX: F10.230 Alcohol dependence with withdrawal, uncomplicated (principal); F11.20 Opioid dependence, uncomplicated; F14.20 Cocaine dependence, uncomplicated; F17.210 Nicotine dependence, cigarettes, uncomplicated; F19.24 Other psychoactive substance dependence with psychoactive substance-induced mood disorder; I10 Essential (primary) hypertension; J45.909 Unspecified asthma, uncomplicated; M17.11 Unilateral primary osteoarthritis, right knee; B18.2 Chronic viral hepatitis C; Z99.89 Dependence on other enabling machines and devices; Z56.0 Unemployment, unspecified; Z59.0 Homelessness
CPT/HCPCS: 36415; 80053; 85027; 86780; 93005; 93010; C9803; U0003; U0005

== ENCOUNTER 2021-01-19 10:23 | Inpatient (IN) | payer OTHER ==
[2021-01-19] MEDS ORDERED: LOPERAMIDE HCL 2 MG CAPSULE PO PRN (13:18)
[2021-01-19] MEDS ORDERED: MAG HYDROX/AL HYDROX/SIMETH 30 ML UNIT-DOSE CUP PO PRN (13:18)
[2021-01-19] MEDS ORDERED: P-EPHED 60MG/TRIPROLIDI 2.5MG TABLET PO PRN (13:18)
[2021-01-19] MEDS ORDERED: MAGNESIUM HYDROX 2400MG/30ML ORAL SUSPENSION 30 ML CUP PO PRN (13:18)
[2021-01-19] MEDS ORDERED: MAGNESIUM CITRATE 300 ML BOTTLE PO PRN (13:18)
[2021-01-19] MEDS ORDERED: guaiFENesin 200 MG/10 ML 10 ML UNIT-DOSE CUPS PO PRN (13:18)
[2021-01-19] MEDS ORDERED: MENTHOL/PHENOL 1 EACH UD MM PRN (13:18)
[2021-01-19] MEDS ORDERED: hydrOXYzine PAMOATE 25 MG CAPSULE (FP) PO PRN (13:18)
[2021-01-19] MEDS ORDERED: ALBUTEROL SO4 HFA INHALER IH PRN (13:19)
[2021-01-19] MEDS: IBUPROFEN 400 MG TABLET (FP) PO PRN ×2 (14:37→20:50)
[2021-01-19] MEDS: ACETAMINOPHEN 325 MG TABLET (FP) PO PRN (17:22)
[2021-01-19] MEDS ORDERED: PT OWN MED DRAWER 7, Y5N ONE (20:27)
[2021-01-19] MEDS: MELATONIN 5 MG TABLETS PO SCH (21:05)
[2021-01-19] MEDS: BUDESONIDE/FORMETEROL FUMARATE 160/4.5 mcg INHALER IH SCH (21:05)
[2021-01-19] MEDS: THIAMINE HCL 100 MG TABLET (FP) PO SCH (21:06)
[2021-01-20] MEDS ORDERED: methaDONE HCL 10 MG TABLET ONE (05:24)
[2021-01-20] MEDS ORDERED: methaDONE HCL 40 MG DISPERSABLE TABLET ONE (05:25)
[2021-01-20] MEDS: IBUPROFEN 400 MG TABLET (FP) PO PRN ×3 (06:39→21:38)
[2021-01-20] MEDS: PRENATAL VITAMINS W/ FOLIC ACID TABLET (FP) PO SCH (09:20)
[2021-01-20] MEDS: LISINOPRIL 20 MG TABLET PO SCH (09:20)
[2021-01-20] MEDS: NICOTINE 7 MG/24 HOURS TOPICAL PATCH TD SCH (09:20)
[2021-01-20] MEDS: BUDESONIDE/FORMETEROL FUMARATE 160/4.5 mcg INHALER IH SCH ×2 (09:20→21:35)
[2021-01-20] MEDS: HYDROCHLOROTHIAZIDE 25 MG TABLET (FP) PO SCH (09:20)
[2021-01-20] MEDS: ACETAMINOPHEN 325 MG TABLET (FP) PO PRN ×2 (09:23→16:45)
[2021-01-20] MEDS ORDERED: methaDONE HCL 40 MG DISPERSABLE TABLET PO SCH (10:00)
[2021-01-20] MEDS ORDERED: PT OWN MED DRAWER 7, Y5N ONE ×3 (10:52→20:05)
[2021-01-20 13:57] LABS: HIV INTERPRETATION NEGATIVE (NEGATIVE)
[2021-01-20] MEDS: risperiDONE 2 MG TABLET PO SCH (21:35)
[2021-01-20] MEDS: THIAMINE HCL 100 MG TABLET (FP) PO SCH (21:36)
[2021-01-20] MEDS: MELATONIN 5 MG TABLETS PO SCH (21:36)
[2021-01-20] MEDS ORDERED: risperiDONE 1 MG TABLET PO SCH (22:00)
[2021-01-21] MEDS ORDERED: methaDONE HCL 10 MG TABLET ONE (05:32)
[2021-01-21] MEDS ORDERED: methaDONE HCL 40 MG DISPERSABLE TABLET ONE (05:32)
[2021-01-21] MEDS ORDERED: PT OWN MED DRAWER 7, Y5N ONE (08:12)
[2021-01-21] MEDS: NICOTINE 7 MG/24 HOURS TOPICAL PATCH TD SCH (09:50)
[2021-01-21] MEDS: BUDESONIDE/FORMETEROL FUMARATE 160/4.5 mcg INHALER IH SCH ×2 (09:50→21:14)
[2021-01-21] MEDS: ESCITALOPRAM OXALATE 20 MG TABLET PO SCH (09:50)
[2021-01-21] MEDS: HYDROCHLOROTHIAZIDE 25 MG TABLET (FP) PO SCH (09:50)
[2021-01-21] MEDS: risperiDONE 1 MG TABLET PO SCH (09:51)
[2021-01-21] MEDS: METHOCARBAMOL 500 MG TABLET PO PRN (09:51)
[2021-01-21] MEDS: LISINOPRIL 20 MG TABLET PO SCH (09:51)
[2021-01-21] MEDS: PRENATAL VITAMINS W/ FOLIC ACID TABLET (FP) PO SCH (09:51)
[2021-01-21] MEDS: ACETAMINOPHEN 325 MG TABLET (FP) PO PRN (11:45)
[2021-01-21] MEDS: IBUPROFEN 400 MG TABLET (FP) PO PRN ×2 (16:46→21:57)
[2021-01-21] MEDS: risperiDONE 2 MG TABLET PO SCH (21:13)
[2021-01-21] MEDS: MELATONIN 5 MG TABLETS PO SCH (21:13)
[2021-01-21] MEDS: THIAMINE HCL 100 MG TABLET (FP) PO SCH (21:13)
[2021-01-22] MEDS ORDERED: methaDONE HCL 40 MG DISPERSABLE TABLET ONE (05:44)
[2021-01-22] MEDS ORDERED: methaDONE HCL 10 MG TABLET ONE (05:44)
[2021-01-22] MEDS: ACETAMINOPHEN 325 MG TABLET (FP) PO PRN ×3 (06:36→21:32)
[2021-01-22] MEDS: NICOTINE 7 MG/24 HOURS TOPICAL PATCH TD SCH (09:49)
[2021-01-22] MEDS: risperiDONE 1 MG TABLET PO SCH (09:49)
[2021-01-22] MEDS: PRENATAL VITAMINS W/ FOLIC ACID TABLET (FP) PO SCH (09:49)
[2021-01-22] MEDS: ESCITALOPRAM OXALATE 20 MG TABLET PO SCH (09:49)
[2021-01-22] MEDS: HYDROCHLOROTHIAZIDE 25 MG TABLET (FP) PO SCH (09:50)
[2021-01-22] MEDS: LISINOPRIL 20 MG TABLET PO SCH (09:50)
[2021-01-22] MEDS: BUDESONIDE/FORMETEROL FUMARATE 160/4.5 mcg INHALER IH SCH ×2 (09:50→22:18)
[2021-01-22] MEDS: IBUPROFEN 400 MG TABLET (FP) PO PRN ×2 (09:52→18:01)
[2021-01-22] MEDS: METHOCARBAMOL 500 MG TABLET PO PRN (12:29)
[2021-01-22] MEDS: NICOTINE 10 MG CARTRIDGE (INHALER) IH PRN (15:28)
[2021-01-22] MEDS: THIAMINE HCL 100 MG TABLET (FP) PO SCH (21:29)
[2021-01-22] MEDS: MELATONIN 5 MG TABLETS PO SCH (21:29)
[2021-01-22] MEDS: risperiDONE 2 MG TABLET PO SCH (21:29)
[2021-01-22] MEDS ORDERED: PT OWN MED DRAWER 7, Y5N ONE (21:31)
[2021-01-23] MEDS ORDERED: methaDONE HCL 40 MG DISPERSABLE TABLET ONE (03:41)
[2021-01-23] MEDS ORDERED: methaDONE HCL 10 MG TABLET ONE (03:41)
[2021-01-23] MEDS: IBUPROFEN 400 MG TABLET (FP) PO PRN (06:39)
[2021-01-23] MEDS ORDERED: PT OWN MED DRAWER 7, Y5N ONE (08:09)
[2021-01-23] MEDS: METHOCARBAMOL 500 MG TABLET PO PRN (08:35)
[2021-01-23] MEDS: ESCITALOPRAM OXALATE 20 MG TABLET PO SCH (10:00)
[2021-01-23] MEDS: LISINOPRIL 20 MG TABLET PO SCH (10:00)
[2021-01-23] MEDS: PRENATAL VITAMINS W/ FOLIC ACID TABLET (FP) PO SCH (10:00)
[2021-01-23] MEDS: NICOTINE 7 MG/24 HOURS TOPICAL PATCH TD SCH (10:00)
[2021-01-23] MEDS: risperiDONE 1 MG TABLET PO SCH (10:00)
[2021-01-23] MEDS: HYDROCHLOROTHIAZIDE 25 MG TABLET (FP) PO SCH (10:00)
[2021-01-23] MEDS: NICOTINE 10 MG CARTRIDGE (INHALER) IH PRN ×2 (10:01→17:33)
[2021-01-23] MEDS: BUDESONIDE/FORMETEROL FUMARATE 160/4.5 mcg INHALER IH SCH ×2 (10:02→21:15)
[2021-01-23] MEDS: IBUPROFEN 600 MG TABLET (FP) PO PRN ×2 (17:29→21:18)
[2021-01-23] MEDS: risperiDONE 2 MG TABLET PO SCH (21:15)
[2021-01-23] MEDS: MELATONIN 5 MG TABLETS PO SCH (21:15)
[2021-01-23] MEDS: THIAMINE HCL 100 MG TABLET (FP) PO SCH (21:15)
[2021-01-24] MEDS ORDERED: methaDONE HCL 10 MG TABLET ONE (03:34)
[2021-01-24] MEDS ORDERED: methaDONE HCL 40 MG DISPERSABLE TABLET ONE (03:34)
[2021-01-24] MEDS: IBUPROFEN 600 MG TABLET (FP) PO PRN ×2 (06:24→14:32)
[2021-01-24] MEDS: BUDESONIDE/FORMETEROL FUMARATE 160/4.5 mcg INHALER IH SCH ×2 (09:03→21:39)
[2021-01-24] MEDS: HYDROCHLOROTHIAZIDE 25 MG TABLET (FP) PO SCH ×2 (09:04→10:10)
[2021-01-24] MEDS: ESCITALOPRAM OXALATE 20 MG TABLET PO SCH (09:04)
[2021-01-24] MEDS: NICOTINE 7 MG/24 HOURS TOPICAL PATCH TD SCH (09:04)
[2021-01-24] MEDS: LISINOPRIL 20 MG TABLET PO SCH (09:05)
[2021-01-24] MEDS: risperiDONE 1 MG TABLET PO SCH (09:05)
[2021-01-24] MEDS: PRENATAL VITAMINS W/ FOLIC ACID TABLET (FP) PO SCH (09:05)
[2021-01-24] MEDS: NICOTINE 10 MG CARTRIDGE (INHALER) IH PRN ×3 (09:06→21:39)
[2021-01-24] MEDS: METHOCARBAMOL 500 MG TABLET PO PRN ×2 (09:06→21:40)
[2021-01-24] MEDS: ACETAMINOPHEN 325 MG TABLET (FP) PO PRN (16:34)
[2021-01-24] MEDS: risperiDONE 2 MG TABLET PO SCH (21:40)
[2021-01-24] MEDS: THIAMINE HCL 100 MG TABLET (FP) PO SCH (21:40)
[2021-01-24] MEDS: MELATONIN 5 MG TABLETS PO SCH (21:40)
[2021-01-25] MEDS ORDERED: methaDONE HCL 10 MG TABLET ONE (03:43)
[2021-01-25] MEDS ORDERED: methaDONE HCL 40 MG DISPERSABLE TABLET ONE (03:44)
[2021-01-25] MEDS: METHOCARBAMOL 500 MG TABLET PO PRN ×3 (06:37→21:14)
[2021-01-25] MEDS: IBUPROFEN 600 MG TABLET (FP) PO PRN ×2 (08:34→16:43)
[2021-01-25] MEDS: NICOTINE 10 MG CARTRIDGE (INHALER) IH PRN ×3 (08:34→21:15)
[2021-01-25] MEDS: risperiDONE 1 MG TABLET PO SCH (09:40)
[2021-01-25] MEDS: ESCITALOPRAM OXALATE 20 MG TABLET PO SCH (09:40)
[2021-01-25] MEDS: LISINOPRIL 20 MG TABLET PO SCH (09:40)
[2021-01-25] MEDS: HYDROCHLOROTHIAZIDE 25 MG TABLET (FP) PO SCH (09:40)
[2021-01-25] MEDS: NICOTINE 7 MG/24 HOURS TOPICAL PATCH TD SCH (09:40)
[2021-01-25] MEDS: BUDESONIDE/FORMETEROL FUMARATE 160/4.5 mcg INHALER IH SCH ×2 (09:41→21:13)
[2021-01-25] MEDS: PRENATAL VITAMINS W/ FOLIC ACID TABLET (FP) PO SCH (09:41)
[2021-01-25] MEDS: ACETAMINOPHEN 325 MG TABLET (FP) PO PRN (09:43)
[2021-01-25] MEDS ORDERED: PT OWN MED DRAWER 7, Y5N ONE (19:27)
[2021-01-25] MEDS: THIAMINE HCL 100 MG TABLET (FP) PO SCH (21:13)
[2021-01-25] MEDS: risperiDONE 2 MG TABLET PO SCH (21:13)
[2021-01-25] MEDS: MELATONIN 5 MG TABLETS PO SCH (21:14)
[2021-01-26] MEDS ORDERED: methaDONE HCL 10 MG TABLET ONE (03:27)
[2021-01-26] MEDS ORDERED: methaDONE HCL 40 MG DISPERSABLE TABLET ONE (03:27)
[2021-01-26] MEDS: METHOCARBAMOL 500 MG TABLET PO PRN ×2 (06:38→15:34)
[2021-01-26] MEDS: NICOTINE 10 MG CARTRIDGE (INHALER) IH PRN ×2 (08:24→21:55)
[2021-01-26] MEDS: PRENATAL VITAMINS W/ FOLIC ACID TABLET (FP) PO SCH (09:39)
[2021-01-26] MEDS: risperiDONE 1 MG TABLET PO SCH (09:39)
[2021-01-26] MEDS: ESCITALOPRAM OXALATE 20 MG TABLET PO SCH (09:39)
[2021-01-26] MEDS: BUDESONIDE/FORMETEROL FUMARATE 160/4.5 mcg INHALER IH SCH ×2 (09:40→21:39)
[2021-01-26] MEDS: NICOTINE 7 MG/24 HOURS TOPICAL PATCH TD SCH (09:40)
[2021-01-26] MEDS: HYDROCHLOROTHIAZIDE 25 MG TABLET (FP) PO SCH (09:40)
[2021-01-26] MEDS: IBUPROFEN 600 MG TABLET (FP) PO PRN ×2 (09:41→21:42)
[2021-01-26] MEDS: LISINOPRIL 20 MG TABLET PO SCH (09:41)
[2021-01-26] MEDS: ACETAMINOPHEN 325 MG TABLET (FP) PO PRN (11:54)
[2021-01-26] MEDS ORDERED: PT OWN MED DRAWER 7, Y5N ONE ×2 (15:22→19:10)
[2021-01-26] MEDS: risperiDONE 2 MG TABLET PO SCH (21:39)
[2021-01-26] MEDS: THIAMINE HCL 100 MG TABLET (FP) PO SCH (21:39)
[2021-01-26] MEDS: MELATONIN 5 MG TABLETS PO SCH (21:40)
[2021-01-26] MEDS: PRAZOSIN HCL 1 MG CAPSULE PO SCH (22:24)
[2021-01-27] MEDS ORDERED: methaDONE HCL 40 MG DISPERSABLE TABLET ONE (03:29)
[2021-01-27] MEDS ORDERED: methaDONE HCL 10 MG TABLET ONE (03:29)
[2021-01-27] MEDS ORDERED: methaDONE HCL 10 MG TABLET PO SCH (06:00)
[2021-01-27] MEDS: METHOCARBAMOL 500 MG TABLET PO PRN ×2 (06:32→21:08)
[2021-01-27] MEDS: IBUPROFEN 600 MG TABLET (FP) PO PRN ×2 (09:45→16:46)
[2021-01-27] MEDS: HYDROCHLOROTHIAZIDE 25 MG TABLET (FP) PO SCH (09:46)
[2021-01-27] MEDS: risperiDONE 1 MG TABLET PO SCH (09:46)
[2021-01-27] MEDS: ESCITALOPRAM OXALATE 20 MG TABLET PO SCH (09:46)
[2021-01-27] MEDS: NICOTINE 7 MG/24 HOURS TOPICAL PATCH TD SCH (09:46)
[2021-01-27] MEDS: BUDESONIDE/FORMETEROL FUMARATE 160/4.5 mcg INHALER IH SCH ×2 (09:46→21:24)
[2021-01-27] MEDS: LISINOPRIL 20 MG TABLET PO SCH (09:47)
[2021-01-27] MEDS: PRENATAL VITAMINS W/ FOLIC ACID TABLET (FP) PO SCH (09:47)
[2021-01-27] MEDS: NICOTINE 10 MG CARTRIDGE (INHALER) IH PRN (09:47)
[2021-01-27] MEDS ORDERED: JANSSEN COVID-19 VAC,AD26/PF 0.5 ML IM ONE (11:00)
[2021-01-27] MEDS: ACETAMINOPHEN 325 MG TABLET (FP) PO PRN (12:33)
[2021-01-27] MEDS: MELATONIN 5 MG TABLETS PO SCH (21:04)
[2021-01-27] MEDS: THIAMINE HCL 100 MG TABLET (FP) PO SCH (21:04)
[2021-01-27] MEDS: PRAZOSIN HCL 1 MG CAPSULE PO SCH (21:05)
[2021-01-27] MEDS: risperiDONE 2 MG TABLET PO SCH (21:05)
[2021-01-28] MEDS ORDERED: methaDONE HCL 10 MG TABLET ONE (04:28)
[2021-01-28] MEDS ORDERED: methaDONE HCL 40 MG DISPERSABLE TABLET ONE (04:28)
[2021-01-28] MEDS: IBUPROFEN 600 MG TABLET (FP) PO PRN ×2 (06:15→15:52)
[2021-01-28] MEDS: PRENATAL VITAMINS W/ FOLIC ACID TABLET (FP) PO SCH (09:41)
[2021-01-28] MEDS: BUDESONIDE/FORMETEROL FUMARATE 160/4.5 mcg INHALER IH SCH ×2 (09:41→21:43)
[2021-01-28] MEDS: HYDROCHLOROTHIAZIDE 25 MG TABLET (FP) PO SCH (09:41)
[2021-01-28] MEDS: risperiDONE 1 MG TABLET PO SCH (09:41)
[2021-01-28] MEDS: ESCITALOPRAM OXALATE 20 MG TABLET PO SCH (09:41)
[2021-01-28] MEDS: NICOTINE 7 MG/24 HOURS TOPICAL PATCH TD SCH (09:42)
[2021-01-28] MEDS: LISINOPRIL 20 MG TABLET PO SCH (09:42)
[2021-01-28] MEDS: NICOTINE 10 MG CARTRIDGE (INHALER) IH PRN ×2 (09:44→21:45)
[2021-01-28] MEDS: METHOCARBAMOL 500 MG TABLET PO PRN ×2 (09:44→21:42)
[2021-01-28] MEDS: THIAMINE HCL 100 MG TABLET (FP) PO SCH (21:41)
[2021-01-28] MEDS: PRAZOSIN HCL 1 MG CAPSULE PO SCH (21:41)
[2021-01-28] MEDS: risperiDONE 2 MG TABLET PO SCH (21:41)
[2021-01-28] MEDS ORDERED: PT OWN MED DRAWER 7, Y5N ONE (21:46)
[2021-01-28] MEDS: MELATONIN 5 MG TABLETS PO SCH (22:16)
[2021-01-29] MEDS ORDERED: methaDONE HCL 10 MG TABLET ONE (03:38)
[2021-01-29] MEDS ORDERED: methaDONE HCL 40 MG DISPERSABLE TABLET ONE (03:38)
[2021-01-29] MEDS: IBUPROFEN 600 MG TABLET (FP) PO PRN ×3 (06:18→16:58)
[2021-01-29 06:34] VITALS: TEMP 97.5
[2021-01-29] MEDS: NICOTINE 10 MG CARTRIDGE (INHALER) IH PRN (08:31)
[2021-01-29] MEDS ORDERED: PT OWN MED DRAWER 7, Y5N ONE (08:41)
[2021-01-29 08:59] VITALS: BP 112/60; PULSE 84
[2021-01-29] MEDS: ESCITALOPRAM OXALATE 20 MG TABLET PO SCH (09:25)
[2021-01-29] MEDS: HYDROCHLOROTHIAZIDE 25 MG TABLET (FP) PO SCH (09:25)
[2021-01-29] MEDS: PRENATAL VITAMINS W/ FOLIC ACID TABLET (FP) PO SCH (09:26)
[2021-01-29] MEDS: LISINOPRIL 20 MG TABLET PO SCH (09:26)
[2021-01-29] MEDS: NICOTINE 7 MG/24 HOURS TOPICAL PATCH TD SCH (09:26)
[2021-01-29] MEDS: risperiDONE 1 MG TABLET PO SCH (09:27)
[2021-01-29] MEDS: BUDESONIDE/FORMETEROL FUMARATE 160/4.5 mcg INHALER IH SCH (09:27)
[2021-01-29] MEDS: METHOCARBAMOL 500 MG TABLET PO PRN ×2 (09:28→16:58)
[2021-01-29] MEDS: ACETAMINOPHEN 325 MG TABLET (FP) PO PRN (14:58)
[2021-01-29] MEDS ORDERED: METHYL SALICYLATE/MENTHOL OINT 30 GM TUBE TP SCH (22:00)
== END 2021-01-29 17:30 | disposition left against medical advice (07) | DRG 770 ==
LOC: YASAS 10:23 → Y3E 10:24
PROVIDERS: ADMIT Allergy & Immunology; ATTEND Allergy & Immunology
PROC: HZ42ZZZ Group Counseling for Substance Abuse Treatment, Cognitive-Behavioral (ICD-10-PCS; principal; 2021-01-19)
DX: F10.20 Alcohol dependence, uncomplicated (principal); F11.20 Opioid dependence, uncomplicated; F14.20 Cocaine dependence, uncomplicated; F17.210 Nicotine dependence, cigarettes, uncomplicated; F43.10 Post-traumatic stress disorder, unspecified; F25.9 Schizoaffective disorder, unspecified; F19.24 Other psychoactive substance dependence with psychoactive substance-induced mood disorder; F19.282 Other psychoactive substance dependence with psychoactive substance-induced sleep disorder; I10 Essential (primary) hypertension; J45.909 Unspecified asthma, uncomplicated; G47.00 Insomnia, unspecified; R26.2 Difficulty in walking, not elsewhere classified; Z99.89 Dependence on other enabling machines and devices; Z56.0 Unemployment, unspecified; Z59.0 Homelessness
CPT/HCPCS: 0031A; 36415; 82962; 87389; 91303; J2794